=== PATIENT | male | born 1980 | race Two or more races ===

== ENCOUNTER 2017-07-26 10:17 | Emergency (ER) | payer BC ==
[2017-07-26] MEDS ORDERED: predniSONE 20 MG Tab PO ONE (10:38)
[2017-07-26] MEDS ORDERED: Ketorolac 60 MG/2 ML SDV IM ONE (10:39)
--- NOTE | 2017-07-26 10:44 | EDM.PDOC ---
ED HPI GENERAL MEDICAL PROBLEM - General Chief Complaint: Upper Extremity Injury/Pain Stated Complaint: PAIN IN HANDS Time Seen by Provider: 07/26/17 10:29 - History of Present Illness INITIAL COMMENTS - FREE TEXT/NARRATIVE: HISTORY AND PHYSICAL: History of present illness: The patient is a 36-year-old male who presents with complaints of bilateral wrist pain and tingling to digits one through 3 bilaterally but more on the right that he has had in the past and was told that he had carpal tunnel; he says that it had gone away and now with his new job and repetitive movements it is coming back. Patient denies any systemic complaints of fever chills chest pain shortness of breath and has no recent injuries to the extremities or the neck. He says that he feels like there is tension in his volar wrist and he cannot move his wrist normally without discomfort and feeling like he is stretching things. He intermittently will get numbness or tingling in digits one through 3 bilaterally. He also complains of some proximal elbow pain bilaterally without any injuries soft tissue swelling or bony changes. Patient was managed symptomatically when he was in [place] and evaluated and told he had carpal tunnel and as it got better he did not follow-up. He says that with his new job he is doing these movements with his hands and wrists and it has been aggravated. Review of systems: As per history of present illness and below otherwise all systems reviewed and negative. Past medical history: As per history of present illness and as reviewed below otherwise noncontributory. Surgical history: As per history of present illness and as reviewed below otherwise noncontributory. Social history: No reported history of drug or alcohol abuse. Family history: As per history of present illness and as reviewed below otherwise noncontributory. Physical exam: Gen.: Well-developed well-nourished man who is nontoxic and vital signs reviewed by me. HEENT: Atraumatic, normocephalic, negative for conjunctival pallor or scleral icterus, mucous membranes moist, throat clear, neck supple, nontender, trachea midline. Lungs: Clear to auscultation, breath sounds equal bilaterally, chest nontender. Heart: S1S2, regular rate and rhythm no murmur Abdomen: Soft, nondistended, nontender. NABS Skin: No evidence of any diaphoresis, normal turgor no evidence of any rashes or lesions Genitourinary: Deferred. Rectal: Deferred. Extremities: Atraumatic, negative for cords or calf pain. Neurovascular unremarkable. Patient has full range of motion of all extremities but he does have discomfort when he tries to fully flex and extend his wrist. When the patient is put into the parenchyma position he has about 120 angle on the right side and about 100 angle on the left side and says that is very discomforting and he feels tingling in his fingers. There is no ecchymosis or palpable deformities on the wrists and there is no tenderness soft tissue swelling joint effusions at the elbow. All compartments are soft and intact. Neurovascular is completely intact Neuro: Awake, alert, oriented. Cranial nerves II through XII unremarkable. Cerebellum unremarkable. Motor and sensory unremarkable throughout. Exam nonfocal. Diagnostics: [] Therapeutics: Bilateral Velcro splints, Toradol, prednisone I discussed with the patient that he would likely need to be followed up by our hand specialists and that we would give him a short burst of steroids and anti- inflammatories. Impression: Bilateral wrist pain with history of carpal tunnel rule out exacerbation Definitive disposition and diagnosis as appropriate pending reevaluation and review of above. Bilateral Wrist Pain Score (Numeric/FACES): 9 - Related Data Allergies Allergy/AdvReac Type Severity Reaction Status Date / Time No Known Allergies Allergy Verified 07/26/17 10:29 Home Meds: Home Meds . [No Known Home Meds] 07/26/17 [History] Review of Systems - Review of Systems Review Of Systems: ROS reveals no pertinent complaints other than HPI. ED EXAM, GENERAL - Physical Exam Exam: See Below (See dictation) Course - Vital Signs Last Recorded V/S: Last Vital Signs Temp 36.3 C 07/26/17 10:31 Pulse 58 L 07/26/17 10:31 Resp 16 07/26/17 10:31 BP 146/86 H 07/26/17 10:31 Pulse Ox 98 07/26/17 10:31 - Orders/Labs/Meds Orders: Active Orders 24 hr Category Date Time Status Ketorolac [Toradol] Med 07/26/17 10:39 Once 60 mg IM ONETIME ONE predniSONE Med 07/26/17 10:38 Once 40 mg PO ONETIME ONE DME for Discharge [COMM] Stat Oth 07/26/17 10:38 Ordered Departure - Departure Time of Disposition: 10:43 Disposition: Home, Self-Care 01 Condition: Good Clinical Impression: Bilateral wrist pain Carpal tunnel syndrome Qualifiers: Laterality: bilateral Qualified Code(s): G56.03 - Carpal tunnel syndrome, bilateral upper limbs - Discharge Information Referrals: PCP,None [Primary Care Provider] - Additional Instructions: The following information is given to patients seen in the emergency department who are being discharged to home. This information is to outline your options for follow-up care. We provide all patients seen in our emergency department with a follow-up referral. The need for follow-up, as well as the timing and circumstances, are variable depending upon the specifics of your emergency department visit. If you don't have a primary care physician on staff, we will provide you with a referral. We always advise you to contact your personal physician following an emergency department visit to inform them of the circumstance of the visit and for follow-up with them and/or the need for any referrals to a consulting specialist. The emergency department will also refer you to a specialist when appropriate. This referral assures that you have the opportunity for followup care with a specialist. All of these measure are taken in an effort to provide you with optimal care, which includes your followup. Under all circumstances we always encourage you to contact your private physician who remains a resource for coordinating your care. When calling for followup care, please make the office aware that this follow-up is from your recent emergency room visit. If for any reason you are refused follow-up, please contact the [facility] emergency department at and ask to speak to the emergency department charge nurse. [facility] Specialty clinic-Plastic Surgery and Hand Surgery Professional Building [address] [place] [address] [address] [place] [address] [facility] Primary care- Internal Medicine and Family [facility] [address] [place] [id number] Please wear the splints you have been given at all times possible that especially when her work. Please take prescriptions as indicated and ice areas after activities and working. Please contact and follow-up with primary care as well as our hand specialists for further evaluation of this problem and return to ER as needed and as discussed - My Orders Last 24 Hours: My Active Orders 07/26/17 10:38 predniSONE 40 mg PO ONETIME ONE DME for Discharge [COMM] Stat 07/26/17 10:39 Ketorolac [Toradol] 60 mg IM ONETIME ONE - Assessment/Plan Last 24 Hours: My Active Orders 07/26/17 10:38 predniSONE 40 mg PO ONETIME ONE DME for Discharge [COMM] Stat 07/26/17 10:39 Ketorolac [Toradol] 60 mg IM ONETIME ONE
[2017-07-26 11:50] VITALS: BP 139/80
== END 2017-07-26 11:40 | disposition home or self-care (01) ==
LOC: MW.ED 10:17
DX: G56.03 Carpal tunnel syndrome, bilateral upper limbs (principal)
CPT/HCPCS: 96372; 99282; A9270; J1885; L3807

== ENCOUNTER 2017-08-10 11:23 | Emergency (ER) | payer BC ==
[2017-08-10 11:34] VITALS: BP 141/86
--- NOTE | 2017-08-10 11:42 | EDM.PDOC ---
ED HPI GENERAL MEDICAL PROBLEM - General Stated Complaint: CARPAL TUNNEL Time Seen by Provider: 08/10/17 11:39 Source of Information: Reports: Patient History Limitations: Reports: No Limitations - History of Present Illness INITIAL COMMENTS - FREE TEXT/NARRATIVE: HISTORY AND PHYSICAL: []36-year-old male presenting with carpal tunnel pain History of Present Illness: [] Patient has to wrist braces on that he wears all the time except when he is at work. He has an appointment with Dr. Escalante on September 01. He is having difficulty grasping any objects. Review of Systems: As per history of present illness and below otherwise all systems reviewed and negative. Past medical history: As per history of present illness and as reviewed below otherwise noncontributory. Surgical history: As per history of present illness and as reviewed below otherwise noncontributory. Social history: No reported history of drug or alcohol abuse. Family history: As per history of present illness and as reviewed below otherwise noncontributory. Physical exam: Alert and oriented male answering questions appropriately in full sentences without any shortness of breath he is nontoxic in appearance HEENT: Atraumatic, normocehpalic, pupils reactive, negative for conjunctival pallor or scleral icterus, mucous membranes moist, throat clear, neck supple, nontender, trachea midline. Lungs: Clear to auscultation, breath sounds equal bilaterally, chest non tender. Heart: S1S2, regular, negative for clicks, rubs, or JVD. Abdomen: Soft, nondistended, nontender. Negative for masses or hepatossplenmegaly. Negative for costovertebral tenderness. Pelvis: Stable nontender. Genitourinary: Deferred. Rectal: Deferred Extremities: Atraumatic, negative for cords or calf pain. Patient has bilateral thumb spica splints on. Refill less than 2 second. Neurovascular unremarkable. Neuro: Awake, alert, oriented. Cranial nerves II through XII unremarkable. Cerebellum unremarkable. Motor and sensory unremarkable throughout. Exam nonfocal. Diagnostics: [] Therapeutics: [] Impression: [Carpal tunnel pain bilaterally] Plan: []Discharged to home Trial with some Neurontin 300 mg 3 times a day when necessary Keep appointment as scheduled Definitive disposition and diagnosis as appropriate pending reevaluation and review of above. 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 Neurological History: Reports: None Psychiatric History: Reports: None Endocrine/Metabolic History: Reports: None Hematologic History: Reports: None Immunologic History: Reports: None Oncologic (Cancer) History: Reports: None Dermatologic History: Reports: None - Past Surgical History Head Surgeries/Procedures: Reports: None HEENT Surgical History: Reports: None Cardiovascular Surgical History: Reports: None Respiratory Surgical History: Reports: None GI Surgical History: Reports: None Male Surgical History: Reports: None Endocrine Surgical History: Reports: None Neurological Surgical History: Reports: None Musculoskeletal Surgical History: Reports: Carpal Tunnel Oncologic Surgical History: Reports: None Social & Family History - Family History Family Medical History: Noncontributory - Tobacco Use Smoking Status *Q: Current Every Day Smoker Years of Tobacco use: 2 Packs/Tins Daily: 1.5 Used Tobacco, but Quit: No Second Hand Smoke Exposure: Yes - Caffeine Use Caffeine Use: Reports: None Caffeine Use Comment: 1 cup per day - Recreational Drug Use Recreational Drug Use: No ED ROS GENERAL - Review of Systems Review Of Systems: ROS reveals no pertinent complaints other than HPI. ED EXAM, NEURO - Physical Exam Exam: See Below Course - Vital Signs Last Recorded V/S: Last Vital Signs Temp 36.7 C 08/10/17 11:31 Pulse 53 L 08/10/17 11:31 Resp 18 08/10/17 11:31 BP 141/86 H 08/10/17 11:31 Pulse Ox 98 08/10/17 11:31 Departure - Departure Time of Disposition: 11:47 Disposition: Home, Self-Care 01 Condition: Good Clinical Impression: Carpal tunnel syndrome on both sides - Discharge Information Prescriptions: Gabapentin [Neurontin] 300 mg PO TID PRN #30 cap PRN Reason: Pain Referrals: PCP,None [Primary Care Provider] - Additional Instructions: The following information is given to patients seen in the emergency department who are being discharged to home. This information is to outline your options for follow-up care. We provide all patients seen in our emergency department with a follow-up referral. The need for follow-up, as well as the timing and circumstances, are variable depending upon the specifics of your emergency department visit. If you don't have a primary care physician on staff, we will provide you with a referral. We always advise you to contact your personal physician following an emergency department visit to inform them of the circumstance of the visit and for follow-up with them and/or the need for any referrals to a consulting specialist. The emergency department will also refer you to a specialist when appropriate. This referral assures that you have the opportunity for followup care with a specialist. All of these measure are taken in an effort to provide you with optimal care, which includes your followup. Under all circumstances we always encourage you to contact your private physician who remains a resource for coordinating your care. When calling for followup care, please make the office aware that this follow-up is from your recent emergency room visit. If for any reason you are refused follow-up, please contact the [facility] emergency department at and asked to speak to the emergency department charge nurse. [facility]
== END 2017-08-10 12:04 | disposition home or self-care (01) ==
LOC: MW.ED 11:23
DX: G56.03 Carpal tunnel syndrome, bilateral upper limbs (principal); F17.210 Nicotine dependence, cigarettes, uncomplicated; Z79.899 Other long term (current) drug therapy
CPT/HCPCS: 99282; 99283

== ENCOUNTER 2017-08-21 16:45 | Emergency (ER) | payer BC ==
--- NOTE | 2017-08-21 17:22 | EDM.PDOC ---
ED HPI GENERAL MEDICAL PROBLEM - General Chief Complaint: Lower Extremity Injury/Pain Stated Complaint: PT HURT LT KNEE Time Seen by Provider: 08/21/17 16:54 Source of Information: Reports: Patient History Limitations: Reports: No Limitations - History of Present Illness INITIAL COMMENTS - FREE TEXT/NARRATIVE: HISTORY AND PHYSICAL: History of present illness: Patient is a 36-year-old male with a four-day history of left knee pain. States he started noticing swelling above and below the patella along with pain with weightbearing and at rest. He has tried a [id number] knee sleeve for compression which has provided minimal to no relief. Denies any previous injury to the affected extremity. Patient does state he is on his feet a lot for work and therefore does not have much time to rest and elevate his lower extremities. Patient is able to flex and extend at the knee and ankle. No foot drop noted. Denies any numbness or tingling to the extremity. Review of systems: As per history of present illness and below otherwise all systems reviewed and negative. Past medical history: As per history of present illness and as reviewed below otherwise noncontributory. Surgical history: As per history of present illness and as reviewed below otherwise noncontributory. Social history: No reported history of drug or alcohol abuse. Family history: As per history of present illness and as reviewed below otherwise noncontributory. Physical exam: HEENT: Atraumatic, normocephalic, pupils reactive, negative for conjunctival pallor or scleral icterus, mucous membranes moist, throat clear, neck supple, nontender, trachea midline. Lungs: Clear to auscultation, breath sounds equal bilaterally, chest nontender. Heart: S1S2, regular rate and rhythm Abdomen: Soft, nondistended, nontender. Negative for masses or hepatosplenomegaly. Negative for costovertebral tenderness. Pelvis: Stable nontender. Genitourinary: Deferred. Rectal: Deferred. Extremities: Atraumatic, negative for cords or calf pain. Patient has tenderness to the distal left quadricep muscle with mild swelling of the patella. Fullness is appreciated to the posterior knee, along with tenderness. Strong pedal pulses bilaterally. Denies any numbness or tingling. Neurovascular unremarkable. Neuro: Awake, alert, oriented. Cranial nerves II through XII unremarkable. Cerebellum unremarkable. Motor and sensory unremarkable throughout. Exam nonfocal. Both the x-ray and ultrasound show a effusion of the left knee. There is no DVT or Kim cyst noted. Patient states he is concerned that he might have some "ligament tear". I instructed him to follow-up with the orthopedic provider for further diagnostics. At this time I will put a knee immobilizer on him and give him crutches. Please use the anti-inflammatory for daytime use. Do not take additional NSAIDs such as Aleve or ibuprofen with this medication. Tramadol has been given to you for nighttime use. Do not take this while needing to be functioning or driving. Patient is agreeable to plan of care and denies any further questions at this time. Diagnostics: X-ray, ultrasound Therapeutics: Toradol Impression: Left knee effusion Plan: 1. Please use the shari wrap and crutches as directed. Rest, ice, compression, and elevation 2-3 times throughout the day. Please use the anti-inflammatory for daytime use. Do not take additional NSAIDs such as Aleve or ibuprofen with this medication. Tramadol has been given to you for nighttime use. Do not take this while needing to be functioning or driving. 2. Please follow-up with the orthopedic provider as we discussed. 3. Please return to the ED as needed as discussed Definitive disposition and diagnosis as appropriate pending reevaluation and review of above. Duration: Day(s): (4) Location: Reports: Lower Extremity, Left left knee Pain Score (Numeric/FACES): 8 - Related Data Allergies Allergy/AdvReac Type Severity Reaction Status Date / Time No Known Allergies Allergy Verified 08/21/17 16:57 Home Meds: Home Meds Aspirin 0 tab PO BID 08/21/17 [History] Past Medical History - Past Health History Medical/Surgical History: Denies Medical/Surgical History HEENT History: Reports: None Cardiovascular History: Reports: None Respiratory History: Reports: None Gastrointestinal History: Reports: None Genitourinary History: Reports: None Musculoskeletal History: Reports: RA, Other (See Below) 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 Neurological History: Reports: None Psychiatric History: Reports: None Endocrine/Metabolic History: Reports: None Hematologic History: Reports: None Immunologic History: Reports: None Oncologic (Cancer) History: Reports: None Dermatologic History: Reports: None - Past Surgical History Head Surgeries/Procedures: Reports: None HEENT Surgical History: Reports: None Cardiovascular Surgical History: Reports: None Respiratory Surgical History: Reports: None GI Surgical History: Reports: None Male Surgical History: Reports: None Endocrine Surgical History: Reports: None Neurological Surgical History: Reports: None Musculoskeletal Surgical History: Reports: Carpal Tunnel Oncologic Surgical History: Reports: None Social & Family History - Family History Family Medical History: Noncontributory - Tobacco Use Smoking Status *Q: Current Every Day Smoker Years of Tobacco use: 3 Packs/Tins Daily: 1 Used Tobacco, but Quit: No Second Hand Smoke Exposure: Yes - Caffeine Use Caffeine Use: Reports: None Caffeine Use Comment: 1 cup per day - Recreational Drug Use Recreational Drug Use: No Review of Systems - Review of Systems Review Of Systems: ROS reveals no pertinent complaints other than HPI. ED EXAM, GENERAL - Physical Exam Exam: See Below (See dictation) Course - Vital Signs Last Recorded V/S: Last Vital Signs Temp 37.1 C 08/21/17 16:45 Pulse 66 08/21/17 16:45 Resp 18 08/21/17 16:45 BP 136/73 08/21/17 16:45 Pulse Ox 97 08/21/17 16:45 - Orders/Labs/Meds Orders: Active Orders 24 hr Category Date Time Status Knee 3V Lt [CR] Stat Exams 08/21/17 16:59 Taken Venous Doppler Lwr Ext Lt [US] Stat Exams 08/21/17 17:23 Ordered DME for Discharge [COMM] Stat Oth 08/21/17 19:28 Ordered Meds: Medications Discontinued Medications Generic Name Dose Route Start Last Admin Trade Name Freq PRN Reason Stop Dose Admin Ketorolac Tromethamine 60 mg 08/21/17 17:23 08/21/17 17:36 Toradol IM 08/21/17 17:24 60 mg ONETIME ONE Administration Departure - Departure Time of Disposition: 19:26 Disposition: Home, Self-Care 01 Clinical Impression: Knee effusion, left - Discharge Information Referrals: PCP,None [Primary Care Provider] - Forms: ED Department Discharge Additional Instructions: My general discharge The following information is given to patients seen in the emergency department who are being discharged to home. This information is to outline your options for follow-up care. We provide all patients seen in our emergency department with a follow-up referral. The need for follow-up, as well as the timing and circumstances, are variable depending upon the specifics of your emergency department visit. If you don't have a primary care physician on staff, we will provide you with a referral. We always advise you to contact your personal physician following an emergency department visit to inform them of the circumstance of the visit and for follow-up with them and/or the need for any referrals to a consulting specialist. The emergency department will also refer you to a specialist when appropriate. This referral assures that you have the opportunity for follow-up care with a specialist. All of these measure are taken in an effort to provide you with optimal care, which includes your follow-up. Under all circumstances we always encourage you to contact your private physician who remains a resource for coordinating your care. When calling for follow-up care, please make the office aware that this follow-up is from your recent emergency room visit. If for any reason you are refused follow-up, please contact the [facility] Emergency Department at and asked to speak to the emergency department charge nurse. [facility] Specialty Care - Orthopedic Clinic Professional [address], [address] [place] [address] 1. Please use the shari wrap and crutches as directed. Rest, ice, compression, and elevation 2-3 times throughout the day. Please use the anti-inflammatory for daytime use. Do not take additional NSAIDs such as Aleve or ibuprofen with this medication. Tramadol has been given to you for nighttime use. Do not take this while needing to be functioning or driving. 2. Please follow-up with the orthopedic provider as we discussed. 3. Please return to the ED as needed as discussed - My Orders Last 24 Hours: My Active Orders 08/21/17 16:59 Knee 3V Lt [CR] Stat 08/21/17 17:23 Venous Doppler Lwr Ext Lt [US] Stat 08/21/17 19:28 DME for Discharge [COMM] Stat - Assessment/Plan Last 24 Hours: My Active Orders 08/21/17 16:59 Knee 3V Lt [CR] Stat 08/21/17 17:23 Venous Doppler Lwr Ext Lt [US] Stat 08/21/17 19:28 DME for Discharge [COMM] Stat
[2017-08-21] MEDS ORDERED: Ketorolac 60 MG/2 ML SDV IM ONE (17:23)
[2017-08-21 19:53] VITALS: BP 137/77
--- NOTE | 2017-08-22 12:26 | CR ---
EXAM DATE: 08/21/17 PATIENT'S AGE: 36 Patient: INGRID MORALES Facility: [place], [place] Site . Site : [id number] Study: XRay Knee [id number] 5:36:34 PM Ordering Physician: Doctor Camarillo Final Report: INDICATION: Knee pain and Swelling for 3 days, no injury TECHNIQUE: Knee radiograph 3 views. COMPARISON: None FINDINGS: Bones: Alignment is normal. No acute fractures or aggressive bone lesions identified. Joint spaces: Unremarkable. Small knee effusion is seen on the lateral exam. Soft tissues: Unremarkable. No radiopaque foreign bodies are seen. IMPRESSION: 1. No acute osseous injuries are noted. 2. Small knee effusion is seen on the lateral exam. Dictated by: Jean-Paul Garcia MD @ 08/21/2017 17:52:19 (Electronic Signature) Report Signed by Proxy. TAJ
--- NOTE | 2017-08-22 12:38 | US ---
EXAM DATE: 08/21/17 PATIENT'S AGE: 36 Patient: INGRID MORALES Facility: [place], [place] Site . Site : 1980 Study: US Knee Left [id number]/5/2017 7:30:44 PM Ordering Physician: Doctor Camarillo Final Report: INDICATION: Left knee pain. Evaluate possible Kim`s cyst. FINDINGS/IMPRESSION: Sonographic scanning over the left popliteal fossa shows no evidence of a left- sided popliteal cyst. The left popliteal vein is normally compressible with no evidence of DVT. Scanning over the anterior aspect of the left knee above the patella shows a 3.9 x 3.7 x 1.1 centimeter fluid collection which likely represents a left knee joint effusion within the suprapatellar bursa. Dictated by Dav Chowdhury MD @ 08/21/2017 7:59:33 PM Dictated by: Dav Chowdhury MD @ 08/21/2017 20:01:24 (Electronic Signature) Report Signed by Proxy. MTDDori
== END 2017-08-21 19:47 | disposition home or self-care (01) ==
LOC: MW.ED 16:45
DX: M25.462 Effusion, left knee (principal); F17.210 Nicotine dependence, cigarettes, uncomplicated
CPT/HCPCS: 73562; 93971; 96372; 99284; J1885; 99283

== ENCOUNTER 2017-11-21 14:45 | Emergency (ER) | payer BC ==
[2017-11-21 15:14] VITALS: BP 130/78
[2017-11-21] MEDS ORDERED: Albuterol/Ipratropium 3.0-0.5 MG/3 ML Neb Soln NEB ONE (15:14)
[2017-11-21] MEDS ORDERED: Ondansetron 4 MG Tab.DIS PO ONE (15:34)
[2017-11-21] MEDS ORDERED: Ondansetron 4 MG Tab.DIS ONE (15:34)
--- NOTE | 2017-11-21 16:30 | EDM.PDOC ---
ED HPI GENERAL MEDICAL PROBLEM - General Chief Complaint: Respiratory Problem Stated Complaint: COUGHING Time Seen by Provider: 11/21/17 15:00 Source of Information: Reports: Patient History Limitations: Reports: No Limitations - History of Present Illness INITIAL COMMENTS - FREE TEXT/NARRATIVE: History of present illness: [37-year-old male presenting with complaints of coughing, nausea, weakness. Patient indicates that he feels chest congestion, cough with significant amount of mucus production bodyaches and pains, as well as intermittent low-grade fever ] Review of systems: As per history of present illness and below otherwise all systems reviewed and negative. Past medical history: As per history of present illness and as reviewed below otherwise noncontributory. Surgical history: As per history of present illness and as reviewed below otherwise noncontributory. Social history: No reported history of drug or alcohol abuse. Family history: As per history of present illness and as reviewed below otherwise noncontributory. Physical exam: HEENT: Atraumatic, normocephalic, pupils reactive, negative for conjunctival pallor or scleral icterus, mucous membranes moist, throat clear, neck supple, nontender, trachea midline. Lungs: Slightly dim with coarse wet cough breath sounds equal bilaterally, chest nontender. Heart: S1S2, regular, negative for clicks, rubs, or JVD. Abdomen: Soft, nondistended, nontender. Negative for masses or hepatosplenomegaly. Negative for costovertebral tenderness. Pelvis: Stable nontender. Genitourinary: Deferred. Rectal: Deferred. Extremities: Atraumatic, negative for cords or calf pain. Neurovascular unremarkable. Neuro: Awake, alert, oriented. Cranial nerves II through XII unremarkable. Cerebellum unremarkable. Motor and sensory unremarkable throughout. Exam nonfocal. Patient had good response to respiratory therapy treatment with strong productive cough. Influenza were both negative. Discussed viral infections with patient and cough as well as nausea patient verbalized understanding we'll give few days off work rest and hydration Diagnostics: [Fluids AB, chest x-ray] Therapeutics: [] Impression: [Cough Viral syndrome] Plan: [Zofran, hydration, albuterol, spacer, steroids] Definitive disposition and diagnosis as appropriate pending reevaluation and review of above. Body Aches Pain Score (Numeric/FACES): 7 - Related Data Allergies Allergy/AdvReac Type Severity Reaction Status Date / Time No Known Allergies Allergy Verified 11/21/17 15:08 Home Meds: Home Meds Albuterol Sulfate [Proair Hfa] 2 puff IH Q6HR #1 hfa.aer.ad 11/21/17 [Rx] Inhaler, Assist Devices [Space Chamber Plus] 1 each ASDIRECTED #1 spacer 04/03 [Rx] Ondansetron [Zofran] 4 mg PO Q4H #30 tab 11/21/17 [Rx] methylPREDNISolone [Medrol] 4 mg PO DAILY #21 tab.ds.pk 11/21/17 [Rx] Past Medical History - Past Health History Medical/Surgical History: Denies Medical/Surgical History HEENT History: Reports: None Cardiovascular History: Reports: None Respiratory History: Reports: None Gastrointestinal History: Reports: None Genitourinary History: Reports: None Musculoskeletal History: Reports: RA, Other (See Below) 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 Neurological History: Reports: None Psychiatric History: Reports: None Endocrine/Metabolic History: Reports: None Hematologic History: Reports: None Immunologic History: Reports: None Oncologic (Cancer) History: Reports: None Dermatologic History: Reports: None - Past Surgical History Head Surgeries/Procedures: Reports: None HEENT Surgical History: Reports: None Cardiovascular Surgical History: Reports: None Respiratory Surgical History: Reports: None GI Surgical History: Reports: None Male Surgical History: Reports: None Endocrine Surgical History: Reports: None Neurological Surgical History: Reports: None Musculoskeletal Surgical History: Reports: Carpal Tunnel Oncologic Surgical History: Reports: None Social & Family History - Family History Family Medical History: Noncontributory - Tobacco Use Smoking Status *Q: Never Smoker Years of Tobacco use: 3 Packs/Tins Daily: 1 Used Tobacco, but Quit: No Second Hand Smoke Exposure: Yes - Caffeine Use Caffeine Use: Reports: None Caffeine Use Comment: 1 cup per day - Recreational Drug Use Recreational Drug Use: No ED ROS GENERAL - Review of Systems Review Of Systems: See Below (History of present illness) ED EXAM, GENERAL - Physical Exam Exam: See Below Course - Vital Signs Last Recorded V/S: Last Vital Signs Temp 37.6 C 11/21/17 15:09 Pulse 81 11/21/17 15:09 Resp 20 11/21/17 15:09 BP 130/78 11/21/17 15:09 Pulse Ox 97 11/21/17 15:09 - Orders/Labs/Meds Orders: Active Orders 24 hr Category Date Time Status RT Aerosol Therapy [RC] ASDIRECTED Care 11/21/17 15:14 Active Chest 2V [CR] Stat Exams 11/21/17 15:14 Taken Meds: Medications Discontinued Medications Generic Name Dose Route Start Last Admin Trade Name Elo PRN Reason Stop Dose Admin Albuterol/Ipratropium 3 ml 11/21/17 15:14 11/21/17 15:21 Duoneb 3.0-0.5 Mg/3 Ml NEB 11/21/17 15:15 3 ml ONETIME ONE Administration Ondansetron HCl 4 mg 11/21/17 15:34 11/21/17 15:36 Zofran Odt PO 11/21/17 15:35 4 mg ONETIME ONE Administration Ondansetron HCl Confirm 11/21/17 15:34 Zofran Odt Administered 11/21/17 15:35 Dose 4 mg .ROUTE .STK-MED ONE Departure - Departure Time of Disposition: 16:48 Disposition: Home, Self-Care 01 Condition: Good Clinical Impression: Viral syndrome, Cough - Discharge Information Prescriptions: Albuterol Sulfate [Proair Hfa] 2 puff IH Q6HR #1 hfa.aer.ad Inhaler, Assist Devices [Space Chamber Plus] 1 each MC ASDIRECTED #1 spacer methylPREDNISolone [Medrol] 4 mg PO DAILY #21 tab.ds.pk Ondansetron [Zofran] 4 mg PO Q4H #30 tab Referrals: PCP,None [Primary Care Provider] - Forms: ED Department Discharge Additional Instructions: The following information is given to patients seen in the emergency department who are being discharged to home. This information is to outline your options for follow-up care. We provide all patients seen in our emergency department with a follow-up referral. The need for follow-up, as well as the timing and circumstances, are variable depending upon the specifics of your emergency department visit. If you don't have a primary care physician on staff, we will provide you with a referral. We always advise you to contact your personal physician following an emergency department visit to inform them of the circumstance of the visit and for follow-up with them and/or the need for any referrals to a consulting specialist. The emergency department will also refer you to a specialist when appropriate. This referral assures that you have the opportunity for follow-up care with a specialist. All of these measure are taken in an effort to provide you with optimal care, which includes your follow-up. Under all circumstances we always encourage you to contact your private physician who remains a resource for coordinating your care. When calling for follow-up care, please make the office aware that this follow-up is from your recent emergency room visit. If for any reason you are refused follow-up, please contact the [facility] Emergency Department at and asked to speak to the emergency department charge nurse. Take medication as directed Hydration and rest are haynes to helping resolve this quickly Follow-up with primary care provider in 3-5 days Return to ED as needed as discussed - My Orders Last 24 Hours: My Active Orders 11/21/17 15:14 RT Aerosol Therapy [RC] ASDIRECTED Chest 2V [CR] Stat - Assessment/Plan Last 24 Hours: My Active Orders 11/21/17 15:14 RT Aerosol Therapy [RC] ASDIRECTED Chest 2V [CR] Stat
--- NOTE | 2017-11-24 09:12 | CR ---
EXAM DATE: 11/21/17 PATIENT'S AGE: 37 Patient: INGRID MORALES Facility: [place], [place] Site . Site : 1980 Study: XRay Chest [id number]/5/2018 4:23:24 PM Ordering Physician: Doctor Camarillo Final Report: HISTORY: Cough for 3 days, vomiting and diarrhea x2 days. FINDINGS: PA and lateral chest radiographs demonstrate normal cardiac silhouette. Pulmonary vasculature and river are normal. No consolidation or pleural effusion is seen. Bony structures are normal for age. There is no free air under the diaphragm. IMPRESSION: No acute cardiopulmonary disease. Dictated by Kim Pacheco MD @ 11/21/2017 4:34:53 PM Dictated by: Kim Pacheco MD @ 11/21/2017 16:35:10 (Electronic Signature) Report Signed by Proxy. TAJ
== END 2017-11-21 16:53 | disposition home or self-care (01) ==
LOC: MW.ED 14:45
DX: B34.9 Viral infection, unspecified (principal); Z77.22 Contact with and (suspected) exposure to environmental tobacco smoke (acute) (chronic); Z79.899 Other long term (current) drug therapy
CPT/HCPCS: 71046; 87804; 94640; 99284; A9270; 99283

== ENCOUNTER 2018-03-08 13:23 | Emergency (ER) | payer BC ==
--- NOTE | 2018-03-08 13:44 | EDM.PDOC ---
ED HPI GENERAL MEDICAL PROBLEM - General Chief Complaint: Upper Extremity Injury/Pain Stated Complaint: RT HAND SWOLLEN Time Seen by Provider: 03/08/18 13:31 - History of Present Illness INITIAL COMMENTS - FREE TEXT/NARRATIVE: HISTORY AND PHYSICAL: History of present illness: The patient is a 37-year-old male who has bilateral carpal tunnel and is scheduled for surgery with Dr. Escalante on Friday on the right wrist and presents with complaints of knuckle pain/MCP discomfort at MCP 2,3,4 and 5 of his right hand. The patient says that he has an arthritic knee and was told it might be RA was never been formally diagnosed and he does get intermittent knuckle and joint pain in his hands bilaterally on-and-off over many years due to the type of work that he does. The patient denies any new trauma to the area and has not noticed any swelling and has no neurosensory changes in his hand. He has not noticed any warmth to the area and says it is more painful when he tries to make a fist which he has to do a lot at work. He is here for evaluation and has been taking [id number] Motrin. He has no numbness or weakness to his hand Review of systems: As per history of present illness and below otherwise all systems reviewed and negative. Past medical history: As per history of present illness and as reviewed below otherwise noncontributory. Surgical history: As per history of present illness and as reviewed below otherwise noncontributory. Social history: No reported history of drug or alcohol abuse. Family history: As per history of present illness and as reviewed below otherwise noncontributory. Physical exam: HEENT: Atraumatic, normocephalic, negative for conjunctival pallor or scleral icterus, mucous membranes moist, throat clear, neck supple, nontender, trachea midline. Lungs: Clear to auscultation, breath sounds equal bilaterally, Heart: S1S2, regular rate and rhythm no overt murmurs Abdomen: Deferred Pelvis: Deferred. Genitourinary: Deferred. Rectal: Deferred. Extremities: Atraumatic, negative for cords or calf pain. Neurovascular unremarkable. At bilateral hands there is no overt swelling redness or warmth appreciated more specifically along the dorsal aspect of the right hand. There are no skin changes no lesions and no palpable bony deformities of the right hand. There is some mild tenderness when the patient makes a fist at the MCPs numbers 2, 3, 4, 5 but again there is no joint swelling warmth redness or abnormalities appreciated. Pulses are intact and there is no neurosensory changes in the hand. Neuro: Awake, alert, oriented. Cranial nerves II through XII unremarkable. Cerebellum unremarkable. Motor and sensory unremarkable throughout. Exam nonfocal. Diagnostics: X-ray right hand Therapeutics: [] Dr. Escalante was made aware of this case and feels that steroids will not affect her surgery this week so I will prescribe him a Medrol Dosepak and diclofenac. The patient says he needs to continue working this week so I'll not prescribe him anything that is stronger than the NSAIDs. I advised him that if the pain persists he needs to contact Dr. Escalante or return here Impression: MCP pain, history of inflammatory arthritis and carpal tunnel Definitive disposition and diagnosis as appropriate pending reevaluation and review of above. right hand Pain Score (Numeric/FACES): 5 - Related Data Allergies Allergy/AdvReac Type Severity Reaction Status Date / Time No Known Allergies Allergy Verified 03/08/18 13:28 Home Meds: Home Meds . 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 Neurological History: Reports: None Psychiatric History: Reports: None Endocrine/Metabolic History: Reports: None Hematologic History: Reports: None Immunologic History: Reports: None Oncologic (Cancer) History: Reports: None Dermatologic History: Reports: None - Infectious Disease History Infectious Disease History: Reports: Chicken Pox - Past Surgical History Head Surgeries/Procedures: Reports: None HEENT Surgical History: Reports: None Cardiovascular Surgical History: Reports: None Respiratory Surgical History: Reports: None GI Surgical History: Reports: None Male Surgical History: Reports: None Endocrine Surgical History: Reports: None Neurological Surgical History: Reports: None Musculoskeletal Surgical History: Reports: Carpal Tunnel Oncologic Surgical History: Reports: None Social & Family History - Family History Family Medical History: Noncontributory - Tobacco Use Smoking Status *Q: Current Every Day Smoker Years of Tobacco use: 13 Packs/Tins Daily: 1 Used Tobacco, but Quit: No Second Hand Smoke Exposure: Yes - Caffeine Use Caffeine Use: Reports: None Caffeine Use Comment: 1 cup per day - Recreational Drug Use Recreational Drug Use: No Review of Systems - Review of Systems Review Of Systems: ROS reveals no pertinent complaints other than HPI. ED EXAM, GENERAL - Physical Exam Exam: See Below (See dictation) Course - Vital Signs Last Recorded V/S: Last Vital Signs Temp 36.9 C 03/08/18 13:29 Pulse 56 L 03/08/18 13:29 Resp 18 03/08/18 13:29 BP 109/61 03/08/18 13:29 Pulse Ox 98 03/08/18 13:29 - Orders/Labs/Meds Orders: Active Orders 24 hr Category Date Time Status Hand 2V Rt [CR] Stat Exams 03/08/18 13:38 Taken Departure - Departure Time of Disposition: 14:53 Disposition: Home, Self-Care 01 Condition: Good Clinical Impression: Pain, joint, hand, right - Discharge Information Referrals: PCP,None [Primary Care Provider] - Forms: ED Department Discharge Additional Instructions: The following information is given to patients seen in the emergency department who are being discharged to home. This information is to outline your options for follow-up care. We provide all patients seen in our emergency department with a follow-up referral. The need for follow-up, as well as the timing and circumstances, are variable depending upon the specifics of your emergency department visit. If you don't have a primary care physician on staff, we will provide you with a referral. We always advise you to contact your personal physician following an emergency department visit to inform them of the circumstance of the visit and for follow-up with them and/or the need for any referrals to a consulting specialist. The emergency department will also refer you to a specialist when appropriate. This referral assures that you have the opportunity for followup care with a specialist. All of these measure are taken in an effort to provide you with optimal care, which includes your followup. Under all circumstances we always encourage you to contact your private physician who remains a resource for coordinating your care. When calling for followup care, please make the office aware that this follow-up is from your recent emergency room visit. If for any reason you are refused follow-up, please contact the [facility] emergency department at and ask to speak to the emergency department charge nurse. [facility] Special[facility] clinic-Plastic Surgery and Hand Surgery Professional [address] [address] Ice and elevate the hand after working Take all medications as prescribed and return to ER as needed and as discussed - My Orders Last 24 Hours: My Active Orders 03/08/18 13:38 Hand 2V Rt [CR] Stat - Assessment/Plan Last 24 Hours: My Active Orders 03/08/18 13:38 Hand 2V Rt [CR] Stat
[2018-03-08 15:10] VITALS: BP 129/67
--- NOTE | 2018-03-09 15:04 | CR ---
EXAM DATE: 03/08/18 PATIENT'S AGE: 37 Patient: INGRID MORALES Facility: [place], [place] Site . Site : 1980 Study: XRay Extremity Right hand [id number]/22/2018 1:55:21 PM Ordering Physician: Oswaldo Hayward Final Report: HISTORY: Right hand pain. Recent carpal tunnel surgery. TECHNIQUE: Two views of the right hand. COMPARISON: No prior. FINDINGS: There is no acute fracture or malalignment. Joint spaces are maintained. No erosions or chondrocalcinosis. No radiopaque foreign body or soft tissue gas. IMPRESSION: No identified cause of patient`s right hand pain. Dictated by Wes Aguiar MD @ 03/08/2018 1:57:11 PM Dictated by: Wes Aguiar MD @ 03/08/2018 13:57:16 (Electronic Signature) Report Signed by Proxy. TAJ
== END 2018-03-08 15:06 | disposition home or self-care (01) ==
LOC: MW.ED 13:23
DX: G56.03 Carpal tunnel syndrome, bilateral upper limbs (principal); F17.210 Nicotine dependence, cigarettes, uncomplicated; M06.9 Rheumatoid arthritis, unspecified
CPT/HCPCS: 73120-26-RT; 73120-RT; 99283

== ENCOUNTER 2018-03-13 06:57 | Day surgery (SDC) | payer BC ==
[2018-03-13] MEDS ORDERED: Propofol 200 MG/20 ML SDV ONE (07:05)
[2018-03-13] MEDS ORDERED: Glycopyrrolate 0.2 MG/ML SDV ONE (07:11)
[2018-03-13] MEDS ORDERED: Ondansetron 4 MG/2 ML SDV ONE (07:11)
[2018-03-13] MEDS ORDERED: Ketorolac 30 MG/ML SDV ONE (07:11)
[2018-03-13] MEDS ORDERED: Bupivacaine 25%/EPINEPHrine/PF 30 ML ONE (07:12)
[2018-03-13] MEDS ORDERED: fentaNYL 100 MCG/2 ML SDV ONE (07:13)
[2018-03-13] MEDS ORDERED: Midazolam 1 MG/ML 2 ML SDV ONE (07:13)
[2018-03-13] MEDS ORDERED: Lidocaine 2% 5 ML SDV ONE (07:25)
[2018-03-13] MEDS ORDERED: Desflurane 240 ML Bottle ONE (07:34)
[2018-03-13] MEDS ORDERED: ceFAZolin 1 GM Vial ONE (07:42)
--- NOTE | 2018-03-13 07:42 | PCM.PREANE ---
Preanesthetic Assessment - Anesthesia/Transfusion/Family Hx Anesthesia History: No Prior Anesthesia Family History of Anesthesia Reaction: No Transfusion History: No Prior Transfusion(s) - Review of Systems General: No Symptoms Pulmonary: No Symptoms Cardiovascular: No Symptoms Gastrointestinal: No Symptoms Neurological: No Symptoms Other: Reports: None - Physical Assessment O2 Sat by Pulse Oximetry: 97 Respiratory Rate: 16 Vital Signs: Last Vital Signs Temp 36.8 C 03/13/18 07:31 Pulse 57 L 03/13/18 07:31 Resp 16 03/13/18 07:31 BP 119/65 03/13/18 07:31 Pulse Ox 97 03/13/18 07:31 Height: 1.73 m Weight: 86.183 kg ASA Class: 2 Mental Status: Alert & Oriented x3 Airway Class: Mallampati = 1 Dentition: Reports: Normal Dentition ROM/Head Extension: Full Lungs: Clear to Auscultation, Normal Respiratory Effort Cardiovascular: Regular Rate, Regular Rhythm - Allergies Allergies/Adverse Reactions: Allergies Allergy/AdvReac Type Severity Reaction Status Date / Time No Known Allergies Allergy Verified 03/10/18 11:41 - Anesthesia Plan Pre-Op Medication Ordered: None - Acknowledgements Anesthesia Type Planned: General Anesthesia, MAC Pt an Appropriate Candidate for the Planned Anesthesia: Yes Alternatives and Risks of Anesthesia Discussed w Pt/Guardian: Yes Pt/Guardian Understands and Agrees with Anesthesia Plan: Yes PreAnesthesia Questionnaire - Past Health History Medical/Surgical History: Denies Medical/Surgical History HEENT History: Reports: None Cardiovascular History: Reports: Heart Murmur Respiratory History: Reports: None Gastrointestinal History: Reports: None Genitourinary History: Reports: None Musculoskeletal History: Neurological History: Reports: None Psychiatric History: Reports: None Endocrine/Metabolic History: Reports: None Hematologic History: Reports: None Immunologic History: Reports: None Oncologic (Cancer) History: Reports: None Dermatologic History: Reports: None - Infectious Disease History Infectious Disease History: Reports: Chicken Pox - Past Surgical History Head Surgeries/Procedures: Reports: None HEENT Surgical History: Reports: None Cardiovascular Surgical History: Reports: None Respiratory Surgical History: Reports: None GI Surgical History: Reports: None Male Surgical History: Reports: None Endocrine Surgical History: Reports: None Neurological Surgical History: Reports: None Musculoskeletal Surgical History: Reports: None Oncologic Surgical History: Reports: None - SUBSTANCE USE Smoking Status *Q: Current Every Day Smoker Tobacco Use Within Last Twelve Months: Cigarettes Second Hand Smoke Exposure: Yes Recreational Drug Use History: No - HOME MEDS Home Medications: Home Meds . [No Known Home Meds] 03/08/18 [History] - CURRENT (IN HOUSE) MEDS Current Meds: Current Medications Hydrocodone Bitart/Acetaminophen (Coleraine 325-5 Mg) 1 tab PO Q4H PRN PRN Reason: Pain Bupivacaine HCl/Epinephrine Bitart (Marcaine 0.25%/Epinephrine 1:200,000) 10 ml INJECT ONETIME ONE Stop: 03/13/18 08:01 Cefazolin Sodium/Dextrose 2 gm (/ Premix) 50 mls @ 100 mls/hr IV ONETIME ONE Stop: 03/13/18 08:29 Lactated Ringer's (Ringers, Lactated) 1,000 mls @ 125 mls/hr IV ASDIRECTED [facility] Last Admin: 03/13/18 07:20 Dose: 125 mls/hr Discontinued Medications Desflurane (Suprane) Confirm Administered Dose 480 ml .ROUTE .STK-MED ONE Stop: 03/13/18 07:35 Fentanyl (Sublimaze) Confirm Administered Dose 100 mcg .ROUTE .STK-MED ONE Stop: 03/13/18 07:14 Glycopyrrolate (Robinul) Confirm Administered Dose 0.2 mg .ROUTE .STK-MED ONE Stop: 03/13/18 07:12 Bupivacaine HCl/Epinephrine Bitart (Sensorc Mpf 0.25%-Epi [id number]) Confirm Administered Dose 30 mls @ as directed .ROUTE .STK-MED ONE Stop: 03/13/18 07:13 Ketorolac Tromethamine (Toradol) Confirm Administered Dose 30 mg .ROUTE .STK- MED ONE Stop: 03/13/18 07:12 Lidocaine (Xylocaine-Mpf 2%) Confirm Administered Dose 5 ml .ROUTE .STK-MED ONE Stop: 03/13/18 07:26 Midazolam HCl (Versed 1 Mg/Ml) Confirm Administered Dose 2 mg .ROUTE .STK-MED ONE Stop: 03/13/18 07:14 Ondansetron HCl (Zofran) Confirm Administered Dose 4 mg .ROUTE .STK-MED ONE Stop: 03/13/18 07:12 Propofol (Diprivan 20 Ml) Confirm Administered Dose 400 mg .ROUTE .STK-MED ONE Stop: 03/13/18 07:06
[2018-03-13] MEDS ORDERED: Sodium Chloride 0.9% 20 ML ONE (07:43)
[2018-03-13] MEDS ORDERED: Lactated Ringers 1,000 ML IV SCH (08:00)
[2018-03-13] MEDS ORDERED: ceFAZolin 2 GM in Premix Bag 1 BAG IV ONE (08:00)
[2018-03-13] MEDS ORDERED: Acetaminophen/HYDROcodone 325-5 MG Tab PO PRN (08:00)
[2018-03-13] MEDS ORDERED: Bupivacaine 0.25%/EPINEPHrine 1:200,000 10 ML SDV INJECT ONE (08:00)
[2018-03-13] MEDS ORDERED: fentaNYL 100 MCG/2 ML SDV IVPUSH PRN (09:08)
--- NOTE | 2018-03-13 09:09 | PCM.OPNOTE ---
- General Post-Op/Procedure Note Date of Surgery/Procedure: 03/13/18 Operative Procedure(s): right carpal tunnel release and excision of forehead lipoma Pre Op Diagnosis: right carpal tunnel syndrome and deep forehead lipoma Post-Op Diagnosis: Same - lipoma submuscular Anesthesia Technique: General LMA, Local Primary Surgeon: Jazmin Escalante Complications: None Condition: Good
--- NOTE | 2018-03-13 10:48 | PCM.POSTAN ---
POST ANESTHESIA ASSESSMENT - MENTAL STATUS Mental Status: Alert, Oriented - RESPIRATORY Respiratory Status: Respiratory Rate WNL, Airway Patent, O2 Saturation Stable - CARDIOVASCULAR CV Status: Pulse Rate WNL, Blood Pressure Stable - GASTROINTESTINAL GI Status: No Symptoms - POST OP HYDRATION Hydration Status: Adequate & Stable
--- NOTE | 2018-03-13 10:48 | PCM48HPAN ---
Post Anesthesia Note - EVALUATION WITHIN 48HRS OF ANESTHETIC Vital Signs in Normal Range: Yes Patient Participated in Evaluation: Yes Respiratory Function Stable: Yes Airway Patent: Yes Cardiovascular Function Stable: Yes Hydration Status Stable: Yes Pain Control Satisfactory: Yes Nausea and Vomiting Control Satisfactory: Yes Mental Status Recovered: Yes Resp Rate: 11
[2018-03-13 11:16] VITALS: BP 142/77
--- NOTE | 2018-03-16 11:04 | OR ---
SURGEON: KOBE SIMON MD DATE OF PROCEDURE: 03/13/2018 PREOPERATIVE DIAGNOSES: 1. Right carpal tunnel syndrome. 2. Deep forehead lipoma. POSTOPERATIVE DIAGNOSES: 1. Right carpal tunnel syndrome. 2. Deep Submuscular forehead lipoma. PROCEDURES: Right carpal tunnel release and excision of deep submuscular central forehead lipoma. ANESTHESIA: General LMA with local. INDICATIONS: Mr. Pawel Leary is a 37-year-old gentleman seen today for bilateral carpal tunnel syndrome and a forehead lipoma. He will have the right release today and left in several weeks. The forehead lipoma has been bothersome to him and actually causes rubbing where his hat sits. Risks and benefits of excision were discussed with him and he was in agreement to proceed. Risks were including, but not limited to bleeding, infection, damage to underlying or overlying structures, possible need for future interventions, possible scarring. PROCEDURE IN DETAIL: After informed consent was obtained and placed on the chart, the patient was brought to the operating theater and laid in the supine position. After adequate general anesthesia was obtained, the area was prepped and draped, a time-out was completed to confirm side and site. Once adequately confirmed, attention was then paid to prepping and draping of the forehead and the arm. The forehead was draped with Betadine and the arm was prepped with ChloraPrep. Once adequately prepped and draped, a time-out was completed to confirm side and site. The arm was exsanguinated. The tourniquet was insufflated to 200 mmHg and the attention was paid to dissection of the transverse carpal ligament using a 15 blade through the skin and subcutaneous tissues until breach of the ligament. Dissection was carried distally and proximally under direct visualization until complete release. Once adequately released, the area was copiously irrigated and closed using a 5-0 nylon stitch in a horizontal mattress fashion. The wound was dressed with Xeroform fluffs and a Kerlix gauze dressing. The tourniquet was deflated at the end of the case. Attention was then paid to the forehead lipoma. Dissection was carried in a transverse hairline incision. Dissection was carried circumferentially around the lesion. Unfortunately, it was submuscular and the muscle was then cauterized, transected, and the submuscular lipoma was then dissected circumferentially. Once adequately circumferentially dissected, the lipoma was expressed and sent en bloc for pathology. The area was copiously irrigated and meticulous hemostasis was obtained. A small amount of tapering was undertaken to allow smoothing until closure with a 3-0 and 4-0 Monocryl stitch. Wound was dressed with Steri-Strips. The patient tolerated the procedure well. All counts needles were correct at the end of the case. FOLLOWUP INSTRUCTIONS: The patient will see us in 10 to 14 days, sooner if any problems, questions, or concerns. AIDEN / GINGER /[id number] TAJ
== END 2018-03-13 10:05 | disposition home or self-care (01) ==
LOC: MW.SDS 06:57
PROVIDERS: ATTEND Plastic Surgery
DX: G56.03 Carpal tunnel syndrome, bilateral upper limbs (principal); D17.79 Benign lipomatous neoplasm of other sites; F17.200 Nicotine dependence, unspecified, uncomplicated
CPT/HCPCS: 21014; 64721; 88304; J0690; J1885; J2250; J2405; J3010; J7120; 01810; J2704

== ENCOUNTER 2018-03-25 07:28 | Day surgery (SDC) | payer BC ==
[~2018-03-25 07:28] MED LIST: Lidocaine 2% 5 ML SDV ONE; Midazolam 1 MG/ML 2 ML SDV ONE; Propofol 200 MG/20 ML SDV ONE; fentaNYL 100 MCG/2 ML SDV ONE
--- NOTE | 2018-03-25 07:53 | PCM.PREANE ---
Preanesthetic Assessment - Anesthesia/Transfusion/Family Hx Anesthesia History: Prior Anesthesia Without Reaction Family History of Anesthesia Reaction: No Transfusion History: No Prior Transfusion(s) Intubation History: Unknown - Review of Systems General: No Symptoms Pulmonary: No Symptoms Cardiovascular: No Symptoms Gastrointestinal: No Symptoms Neurological: No Symptoms Other: Reports: None - Physical Assessment Height: 1.7 m Weight: 89.358 kg ASA Class: 2 Mental Status: Alert & Oriented x3 Airway Class: Mallampati = 1 Dentition: Reports: Normal Dentition Thyro-Mental Finger Breadths: 3 Mouth Opening Finger Breadths: 3 ROM/Head Extension: Full Lungs: Clear to Auscultation, Normal Respiratory Effort Cardiovascular: Regular Rate, Regular Rhythm - Allergies Allergies/Adverse Reactions: Allergies Allergy/AdvReac Type Severity Reaction Status Date / Time No Known Allergies Allergy Verified 03/20/18 11:54 - Blood Blood Available: No - Anesthesia Plan Pre-Op Medication Ordered: None - Acknowledgements Anesthesia Type Planned: MAC Pt an Appropriate Candidate for the Planned Anesthesia: Yes Alternatives and Risks of Anesthesia Discussed w Pt/Guardian: Yes Pt/Guardian Understands and Agrees with Anesthesia Plan: Yes PreAnesthesia Questionnaire - Past Health History Medical/Surgical History: Denies Medical/Surgical History HEENT History: Reports: None Cardiovascular History: Reports: Heart Murmur Respiratory History: Reports: None Gastrointestinal History: Reports: None Genitourinary History: Reports: None Musculoskeletal History: Reports: Other (See Below) Other Musculoskeletal History: 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) Neurological History: Reports: None Psychiatric History: Reports: None Endocrine/Metabolic History: Reports: Obesity/BMI 30+ Hematologic History: Reports: None Immunologic History: Reports: None Oncologic (Cancer) History: Reports: None Dermatologic History: Reports: None - Infectious Disease History Infectious Disease History: Reports: Chicken Pox - Past Surgical History Head Surgeries/Procedures: Reports: None HEENT Surgical History: Reports: None Cardiovascular Surgical History: Reports: None Respiratory Surgical History: Reports: None GI Surgical History: Reports: None Male Surgical History: Reports: None Endocrine Surgical History: Reports: None Neurological Surgical History: Reports: None Musculoskeletal Surgical History: Reports: Carpal Tunnel Oncologic Surgical History: Reports: None Dermatological Surgical History: Reports: Other (See Below) (exc. of forhead lipoma) - SUBSTANCE USE Smoking Status *Q: Former Smoker (quit a month ago) Second Hand Smoke Exposure: Yes Recreational Drug Use History: No - HOME MEDS Home Medications: Home Meds Hydrocodone/Acetaminophen [Hydrocodon-Acetaminophen 5-325] 1 tab PO ASDIRECTED PRN #30 tablet 03/25/18 [Rx] - CURRENT (IN HOUSE) MEDS Current Meds: Current Medications Hydrocodone Bitart/Acetaminophen (Vivian 325-5 Mg) 1 tab PO Q4H PRN PRN Reason: Pain Bupivacaine HCl/Epinephrine Bitart (Marcaine 0.25%/Epinephrine 1:200,000) 10 ml INJECT ONETIME ONE Stop: 03/25/18 08:01 Cefazolin Sodium/Dextrose 2 gm (/ Premix) 50 mls @ 100 mls/hr IV ONETIME ONE Stop: 03/25/18 08:29 Lactated Ringer's (Ringers, Lactated) 1,000 mls @ 125 mls/hr IV ASDIRECTED TOR Discontinued Medications Fentanyl (Sublimaze) Confirm Administered Dose 100 mcg .ROUTE .STK-MED ONE Stop: 03/25/18 07:25 Lidocaine (Xylocaine-Mpf 2%) Confirm Administered Dose 5 ml .ROUTE .STK-MED ONE Stop: 03/25/18 07:24 Midazolam HCl (Versed 1 Mg/Ml) Confirm Administered Dose 2 mg .ROUTE .STK-MED ONE Stop: 03/25/18 07:25 Propofol (Diprivan 20 Ml) Confirm Administered Dose 200 mg .ROUTE .STK-MED ONE Stop: 03/25/18 07:24
[2018-03-25] MEDS ORDERED: Bupivacaine 25%/EPINEPHrine/PF 30 ML ONE (07:59)
[2018-03-25] MEDS ORDERED: ceFAZolin 2 GM in Premix Bag 1 BAG IV ONE (08:00)
[2018-03-25] MEDS ORDERED: Bupivacaine 0.25%/EPINEPHrine 1:200,000 10 ML SDV INJECT ONE (08:00)
[2018-03-25] MEDS ORDERED: Lactated Ringers 1,000 ML IV SCH (08:00)
[2018-03-25] MEDS ORDERED: Acetaminophen/HYDROcodone 325-5 MG Tab PO PRN (08:00)
--- NOTE | 2018-03-25 08:33 | PCM.OPNOTE ---
- General Post-Op/Procedure Note Date of Surgery/Procedure: 03/25/18 Operative Procedure(s): left carpal tunnel release Pre Op Diagnosis: left carpal tunnel syndrome Post-Op Diagnosis: Same Anesthesia Technique: Local, MAC Primary Surgeon: Jazmin Escalante Complications: None Condition: Good
--- NOTE | 2018-03-25 09:31 | PCM48HPAN ---
Post Anesthesia Note - EVALUATION WITHIN 48HRS OF ANESTHETIC Vital Signs in Normal Range: Yes Patient Participated in Evaluation: Yes Respiratory Function Stable: Yes Airway Patent: Yes Cardiovascular Function Stable: Yes Hydration Status Stable: Yes Pain Control Satisfactory: Yes Nausea and Vomiting Control Satisfactory: Yes Mental Status Recovered: Yes Resp Rate: 16 - COMMENTS/OBSERVATIONS Free Text/Narrative:: no anesthesia problems, patient skipped recovery room phase of postoperative care
[2018-03-25 10:59] VITALS: BP 119/68
--- NOTE | 2018-03-25 12:25 | OR ---
SURGEON: KOBE SIMON MD DATE OF PROCEDURE: 03/25/2018 PREOPERATIVE DIAGNOSIS: Left carpal tunnel syndrome. POSTOPERATIVE DIAGNOSIS: Left carpal tunnel syndrome. PROCEDURE PERFORMED: Left carpal tunnel release. ANESTHESIA: Local MAC. INDICATIONS: Mr. Pawel Leary is a 37-year-old gentleman with left carpal tunnel syndrome. He has previously had his right carpal tunnel release and has done well with this. He is here for the left side. The risks were including, but not limited to, bleeding, infection, damage to underlying or overlying structures, possible need for future interventions, and possible scarring. He was in agreement to proceed. PROCEDURE IN DETAIL: After informed consent was obtained and placed on the chart, the patient was brought to the operating theater and laid in the supine position. After adequate local MAC anesthesia was obtained, the area was prepped and draped, and a time-out was completed to confirm side and site. 0.25% Marcaine with epinephrine was infiltrated into the area and the arm was exsanguinated, and tourniquet was insufflated to 200 mmHg. A #15 blade was used to dissect through the skin and subcutaneous tissues until breach of the ligament. Dissection was then carried distally and proximally under direct visualization until complete release. The area was copiously irrigated and a 5- 0 nylon stitch was used to close the skin in a horizontal mattress fashion. Once completed, the wound was dressed with Xeroform fluffs and a Kerlix gauze dressing, and a 2-inch Herman wrap. The patient tolerated this well, and all counts and needles were correct at the end of the case. FOLLOWUP INSTRUCTIONS: The patient will see us in 10 to 14 days or sooner if there are any problems, questions, or concerns. He was given a prescription for [place]. HEGGTHE / MODL /[id number]
== END 2018-03-25 10:00 | disposition home or self-care (01) ==
LOC: MW.SDS 07:28
PROVIDERS: ATTEND Plastic Surgery
DX: G56.02 Carpal tunnel syndrome, left upper limb (principal)
CPT/HCPCS: 64721; J2250; J3010; J7120; J2704

== ENCOUNTER 2018-07-07 19:05 | Emergency (ER) | payer BC ==
--- NOTE | 2018-07-07 19:52 | EDM.PDOC ---
ED HPI GENERAL MEDICAL PROBLEM - General Chief Complaint: Gastrointestinal Problem Stated Complaint: CAN'T KEEP ANY FOOD DOWN Time Seen by Provider: 07/07/18 19:46 - History of Present Illness INITIAL COMMENTS - FREE TEXT/NARRATIVE: HISTORY AND PHYSICAL: History of present illness: Patient is a 37-year-old male presents concern of vomiting diarrhea 1 day feels may be related to some bad food he ate at a fast food restaurant he denies fever chills chest pain shortness breath or any other concern he has no chronic medical problems he does smoke he denies alcohol or drug abuse Review of systems: As per history of present illness and below otherwise all systems reviewed and negative. Past medical history: As per history of present illness and as reviewed below otherwise noncontributory. Surgical history: As per history of present illness and as reviewed below otherwise noncontributory. Social history: No reported history of drug or alcohol abuse. Family history: As per history of present illness and as reviewed below otherwise noncontributory. Physical exam: HEENT: Atraumatic, normocephalic, pupils reactive, negative for conjunctival pallor or scleral icterus, mucous membranes dry throat clear, neck supple, nontender, trachea midline. Lungs: Clear to auscultation, breath sounds equal bilaterally, chest nontender. Heart: S1S2, regular, negative for clicks, rubs, or JVD. Abdomen: Soft, nondistended, nontender. Negative for masses or hepatosplenomegaly. Negative for costovertebral tenderness. Pelvis: Stable nontender. Genitourinary: Deferred. Rectal: Deferred. Extremities: Atraumatic, negative for cords or calf pain. Neurovascular unremarkable. Neuro: Awake, alert, oriented. Cranial nerves II through XII unremarkable. Cerebellum unremarkable. Motor and sensory unremarkable throughout. Exam nonfocal. Diagnostics: CBC CMP stool for C&S O&P C. difficile if obtainable Therapeutics: Saline 1 L bolus Zofran 4 mg IV Impression: #1 vomiting/diarrhea with dehydration Definitive disposition and diagnosis as appropriate pending reevaluation and review of above. Abdomen Pain Score (Numeric/FACES): 5 - Related Data Allergies Allergy/AdvReac Type Severity Reaction Status Date / Time No Known Allergies Allergy Verified 07/07/18 19:36 Home Meds: Home Meds . 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) Neurological History: Reports: None Psychiatric History: Reports: None Endocrine/Metabolic History: Reports: Obesity/BMI 30+ Hematologic History: Reports: None Immunologic History: Reports: None Oncologic (Cancer) History: Reports: None Dermatologic History: Reports: None - Infectious Disease History Infectious Disease History: Reports: Chicken Pox - Past Surgical History Head Surgeries/Procedures: Reports: None HEENT Surgical History: Reports: None Cardiovascular Surgical History: Reports: None Respiratory Surgical History: Reports: None GI Surgical History: Reports: None Male Surgical History: Reports: None Endocrine Surgical History: Reports: None Neurological Surgical History: Reports: None Musculoskeletal Surgical History: Reports: Carpal Tunnel Oncologic Surgical History: Reports: None Dermatological Surgical History: Reports: Other (See Below) Social & Family History - Family History Family Medical History: Noncontributory - Tobacco Use Smoking Status *Q: Current Every Day Smoker Years of Tobacco use: 15 Packs/Tins Daily: 0.5 - Caffeine Use Caffeine Use: Reports: None Caffeine Use Comment: 1 cup per day ED ROS GENERAL - Review of Systems Review Of Systems: ROS reveals no pertinent complaints other than HPI. ED EXAM, GENERAL - Physical Exam Exam: See Below (See dictation) Course - Vital Signs Last Recorded V/S: Last Vital Signs Temp 37.0 C 07/07/18 19:33 Pulse 79 07/07/18 19:33 Resp 16 07/07/18 19:33 BP 120/72 07/07/18 19:33 Pulse Ox 97 07/07/18 19:33 - Orders/Labs/Meds Orders: Active Orders 24 hr Category Date Time Status CDIFF TOX A+B [OP] Stat Lab 07/07/18 19:53 Ordered CULTURE STOOL + CAMPY+SHIGATOX [RM] Stat Lab 07/07/18 19:53 Ordered Labs: Laboratory Tests 07/07/18 07/07/18 Range/Units 19:45 19:45 WBC 5.21 (4.0-11.0) K/uL RBC 4.80 (4.50-5.90) M/uL Hgb 14.3 (13.0-17.0) g/dL Hct 41.5 (38.0-50.0) % MCV 86.5 (80.0-98.0) fL MCH 29.8 (27.0-32.0) pg MCHC 34.5 (31.0-37.0) g/dL RDW Std Deviation 42.0 (28.0-62.0) fl RDW Coeff of Katheryn 13 (11.0-15.0) % Plt Count 145 L (150-400) K/uL MPV 11.70 (7.40-12.00) fL Neut % (Auto) 70.0 (48.0-80.0) % Lymph % (Auto) 21.3 (16.0-40.0) % [place] % (Auto) 7.9 (0.0-15.0) % Eos % (Auto) 0.4 (0.0-7.0) % Baso % (Auto) 0.4 (0.0-1.5) % Neut # (Auto) 3.7 (1.4-5.7) K/uL Lymph # (Auto) 1.1 (0.6-2.4) K/uL [place] # (Auto) 0.4 (0.0-0.8) K/uL Eos # (Auto) 0.0 (0.0-0.7) K/uL Baso # (Auto) 0.0 (0.0-0.1) K/uL Nucleated RBC % 0.0 /100WBC Nucleated RBCs # 0 K/uL Sodium 138 (136-148) mmol/L Potassium 3.3 L (3.5-5.1) mmol/L Chloride 103 (98-107) mmol/L Carbon Dioxide 24.5 (21.0-32.0) mmol/L BUN 13 (7.0-18.0) mg/dL Creatinine 1.0 (0.8-1.3) mg/dL Est Cr Clr Drug Dosing 98.80 mL/min Estimated GFR (MDRD) > 60.0 ml/min Glucose 95 (74-106) mg/dL Calcium 8.2 L (8.5-10.1) mg/dL Total Bilirubin 0.5 (0.2-1.0) mg/dL AST 15 (15-37) IU/L ALT 30 (14-63) IU/L Alkaline Phosphatase 87 (46-116) U/L Total Protein 7.7 (6.4-8.2) g/dL Albumin 4.1 (3.4-5.0) g/dL Globulin 3.6 H (2.0-3.5) g/dL Albumin/Globulin Ratio 1.1 L (1.3-2.8) Meds: Medications Discontinued Medications Generic Name Dose Route Start Last Admin Trade Name Freq PRN Reason Stop Dose Admin Sodium Chloride 1,000 mls @ 999 mls/hr 07/07/18 20:09 07/07/18 20:17 Normal Saline IV 07/07/18 21:09 999 mls/hr STAT ONE Administration Ondansetron HCl 4 mg 07/07/18 20:09 07/07/18 20:15 Zofran IVPUSH 07/07/18 20:10 4 mg ONETIME ONE Administration Departure - Departure Time of Disposition: 21:25 Disposition: Home, Self-Care 01 Condition: Good Clinical Impression: Vomiting, Diarrhea, Dehydration - Discharge Information *PRESCRIPTION DRUG MONITORING PROGRAM REVIEWED*: Not Applicable *COPY OF PRESCRIPTION DRUG MONITORING REPORT IN PATIENT KEREN: Not Applicable Forms: ED Department Discharge Additional Instructions: The following information is given to patients seen in the emergency department who are being discharged to home. This information is to outline your options for follow-up care. We provide all patients seen in our emergency department with a follow-up referral. The need for follow-up, as well as the timing and circumstances, are variable depending upon the specifics of your emergency department visit. If you don't have a primary care physician on staff, we will provide you with a referral. We always advise you to contact your personal physician following an emergency department visit to inform them of the circumstance of the visit and for follow-up with them and/or the need for any referrals to a consulting specialist. The emergency department will also refer you to a specialist when appropriate. This referral assures that you have the opportunity for followup care with a specialist. All of these measure are taken in an effort to provide you with optimal care, which includes your followup. Under all circumstances we always encourage you to contact your private physician who remains a resource for coordinating your care. When calling for followup care, please make the office aware that this follow-up is from your recent emergency room visit. If for any reason you are refused follow-up, please contact the [facility] emergency department at and asked to speak to the emergency department charge nurse. [facility] [address] [place] [id number] Push fluids clear liquids as directed Zofran as prescribed follow-up primary medical doctor and/or clinic above return as needed as discussed - My Orders Last 24 Hours: My Active Orders 07/07/18 19:53 CDIFF TOX A+B [OP] Stat CULTURE STOOL + CAMPY+SHIGATOX [RM] Stat - Assessment/Plan Last 24 Hours: My Active Orders 07/07/18 19:53 CDIFF TOX A+B [OP] Stat CULTURE STOOL + CAMPY+SHIGATOX [RM] Stat
[2018-07-07] MEDS ORDERED: Ondansetron 4 MG/2 ML SDV IVPUSH ONE (20:09)
[2018-07-07] MEDS ORDERED: Sodium Chloride 0.9% 1,000 ML IV ONE (20:09)
[2018-07-07 20:15] LABS: CHLORIDE,CL 103 mmol/L (98-107); SODIUM,NA 138 mmol/L (136-148)
[2018-07-07 21:37] VITALS: BP 122/74
== END 2018-07-07 21:38 | disposition home or self-care (01) ==
LOC: MW.ED 19:05
DX: R11.10 Vomiting, unspecified (principal); R19.7 Diarrhea, unspecified; E86.0 Dehydration; F17.210 Nicotine dependence, cigarettes, uncomplicated; E66.9 Obesity, unspecified
CPT/HCPCS: 36415; 80053; 85025; 96361; 96374; 99284; J2405; J7040; 99283

== ENCOUNTER 2019-09-17 15:29 | Emergency (ER) | payer BC ==
--- NOTE | 2019-09-17 15:49 | EDM.PDOC ---
ED HPI GENERAL MEDICAL PROBLEM - General Chief Complaint: Lower Extremity Injury/Pain Stated Complaint: ROLLED ANKLE Time Seen by Provider: 09/17/19 15:47 Source of Information: Reports: Patient History Limitations: Reports: No Limitations - History of Present Illness INITIAL COMMENTS - FREE TEXT/NARRATIVE: HISTORY AND PHYSICAL: History of present illness: Patient is a 39-year-old male presents to the ED with complaint of right ankle injury. He states he rolled his ankle playing basketball yesterday and has no been able to bear weight on it. He denies proximal pain or other injury. Review of systems: As per history of present illness and below otherwise all systems reviewed and negative. Past medical history: As per history of present illness and as reviewed below otherwise noncontributory. Surgical history: As per history of present illness and as reviewed below otherwise noncontributory. Social history: No reported history of drug or alcohol abuse. Family history: As per history of present illness and as reviewed below otherwise noncontributory. Physical exam: General: Patient sitting comfortably in no acute distress and nontoxic appearing HEENT: Atraumatic, normocephalic, pupils reactive, negative for conjunctival pallor or scleral icterus, mucous membranes moist, throat clear, neck supple, nontender, trachea midline. No meningeal signs. Lungs: Clear to auscultation, breath sounds equal bilaterally, chest nontender. Heart: S1S2, regular, negative for clicks, rubs, or overt murmur. Abdomen: Soft, nondistended, nontender. Negative for masses or hepatosplenomegaly. Negative for costovertebral tenderness. No rigidity, rebound , guarding. Pelvis: Stable nontender. Genitourinary: Deferred. Rectal: Deferred. Extremities: Right lateral malleolus is swollen with ecchymosis, mild swelling to the medial malleolus. No proximal pain to palpation. negative for cords or calf pain. Neurovascular unremarkable. Neuro: Awake, alert, oriented. Cranial nerves II through XII unremarkable. Cerebellum unremarkable. Motor and sensory unremarkable throughout. Exam nonfocal. Notes: Discussed with Dr. Crowder, orthopedics, he will see patient in the clinic Friday. Patient needs to be NPO for surgery Friday Diagnostics: x-ray right ankle x-ray right foot Therapeutics: Prefab post mold splint Crutches Prescriptions: [place] Impression: Right ankle injury, distal fibular and medial malleolar fractures Plan: Ice, elevate and you may take norco as needed for severe pain. Do not take while driving as it may make you drowsy Follow up with Dr. Crowder, orthopedics, on Friday. Please call first thing in the morning to schedule your appointment. Do not have anything to eat or drink starting after midnight the day before. Return to ED as needed as discussed Definitive disposition and diagnosis as appropriate pending reevaluation and review of above. Right Ankle Pain Score (Numeric/FACES): 8 - Related Data Allergies Allergy/AdvReac Type Severity Reaction Status Date / Time No Known Allergies Allergy Verified 09/17/19 15:45 Home Meds: Home Meds Hydrocodone/Acetaminophen [Hydrocodon-Acetaminophen 5-325] 1 each PO Q6HR PRN # 15 tablet 09/17/19 [Rx] Past Medical History - Past Health History Medical/Surgical History: Denies Medical/Surgical History HEENT History: Reports: None Cardiovascular History: Reports: Heart Murmur Respiratory History: Reports: None Gastrointestinal History: Reports: None Genitourinary History: Reports: None Musculoskeletal History: Reports: Other (See Below) Other Musculoskeletal History: 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) Neurological History: Reports: None Psychiatric History: Reports: None Endocrine/Metabolic History: Reports: Obesity/BMI 30+ Hematologic History: Reports: None Immunologic History: Reports: None Oncologic (Cancer) History: Reports: None Dermatologic History: Reports: None - Infectious Disease History Infectious Disease History: Reports: Chicken Pox - Past Surgical History Head Surgeries/Procedures: Reports: None HEENT Surgical History: Reports: None Cardiovascular Surgical History: Reports: None Respiratory Surgical History: Reports: None GI Surgical History: Reports: None Male Surgical History: Reports: None Endocrine Surgical History: Reports: None Neurological Surgical History: Reports: None Musculoskeletal Surgical History: Reports: Carpal Tunnel Oncologic Surgical History: Reports: None Dermatological Surgical History: Reports: Other (See Below) Social & Family History - Family History Family Medical History: Noncontributory - Caffeine Use Caffeine Use: Reports: None Caffeine Use Comment: 1 cup per day Review of Systems - Review of Systems Review Of Systems: ROS reveals no pertinent complaints other than HPI. ED EXAM, GENERAL - Physical Exam Exam: See Below (see dictation) Course - Vital Signs Last Recorded V/S: Last Vital Signs Temp 97 F 11/01/19 15:47 Pulse 91 09/17/19 15:47 Resp 16 09/17/19 15:47 BP 132/76 09/17/19 15:47 Pulse Ox 98 09/17/19 15:47 Departure - Departure Time of Disposition: 16:45 Disposition: Home, Self-Care 01 Condition: Good Clinical Impression: Medial malleolar fracture, Fracture of distal end of fibula - Discharge Information Referrals: Shahana cA DO [Primary Care Provider] - Forms: ED Department Discharge Additional Instructions: The following information is given to patients seen in the emergency department who are being discharged to home. This information is to outline your options for follow-up care. We provide all patients seen in our emergency department with a follow-up referral. The need for follow-up, as well as the timing and circumstances, are variable depending upon the specifics of your emergency department visit. If you don't have a primary care physician on staff, we will provide you with a referral. We always advise you to contact your personal physician following an emergency department visit to inform them of the circumstance of the visit and for follow-up with them and/or the need for any referrals to a consulting specialist. The emergency department will also refer you to a specialist when appropriate. This referral assures that you have the opportunity for follow-up care with a specialist. All of these measure are taken in an effort to provide you with optimal care, which includes your follow-up. Under all circumstances we always encourage you to contact your private physician who remains a resource for coordinating your care. When calling for follow-up care, please make the office aware that this follow-up is from your recent emergency room visit. If for any reason you are refused follow-up, please contact the [facility] Emergency Department at and asked to speak to the emergency department charge nurse. [facility] Special[facility] Care - Orthopedic [facility] Professional Building [address] [place] [address], [address] [place] [address] Ice, elevate and you may take norco as needed for severe pain. Do not take while driving as it may make you drowsy Follow up with Dr. Crowder, orthopedics, on [place]. Please call first thing in the morning to schedule your appointment. Do not have anything to eat or drink starting after midnight the day before. Return to ED as needed as discussed
--- NOTE | 2019-09-17 16:30 | CR ---
Indication: Injury. Technique: Three views of the right ankle were obtained. Comparison: None Findings: An avulsion of the distal medial malleolus is identified. A fracture of the distal fibula is identified. The ankle mortise is intact. Questionable widening of the medial tibiotalar joint space is identified. Impression: Medial malleolar fracture. Distal fibular fracture. Questionable widening of the medial tibiotalar joint space. Dictated by Altagracia Govea MD @ Sep 17 2019 4:28PM Signed by Dr. Altagracia Govea @ Sep 17 2019 4:29PM
--- NOTE | 2019-09-17 16:30 | CR ---
Indication: Injury. Technique: Three views of the right foot were obtained. Comparison: None Findings: A distal fibular fracture is identified. Medial malleolar fracture is identified. No fracture or subluxation of the foot is identified. Impression: Distal tibia and fibular fracture. Dictated by Altagracia Govea MD @ Sep 17 2019 4:29PM Signed by Dr. Altagracia Govea @ Sep 17 2019 4:29PM
[2019-09-17 17:00] VITALS: BP 126/70; PULSE 68
== END 2019-09-17 16:59 | disposition home or self-care (01) ==
LOC: MW.ED 15:29
DX: S82.51XA Displaced fracture of medial malleolus of right tibia, initial encounter for closed fracture (principal); S82.831A Other fracture of upper and lower end of right fibula, initial encounter for closed fracture; S82.201A Unspecified fracture of shaft of right tibia, initial encounter for closed fracture; I10 Essential (primary) hypertension; E66.9 Obesity, unspecified; Z68.36 Body mass index [BMI] 36.0-36.9, adult; X50.1XXA Overexertion from prolonged static or awkward postures, initial encounter; Y93.67 Activity, basketball
CPT/HCPCS: 29515; 73610-26-RT; 73610-RT; 73620-26-RT; 73620-RT; 99283; 99283-25

== ENCOUNTER 2019-09-22 08:03 | Day surgery (SDC) | payer BC ==
[2019-09-22] MEDS ORDERED: fentaNYL 250 MCG/5 ML SDV ONE (08:34)
[2019-09-22] MEDS ORDERED: Midazolam 1 MG/ML 2 ML SDV ONE (08:34)
[2019-09-22] MEDS ORDERED: Propofol 200 MG/20 ML SDV ONE (08:34)
[2019-09-22] MEDS ORDERED: Ondansetron 4 MG/2 ML SDV ONE (08:35)
[2019-09-22] MEDS ORDERED: Dexamethasone 4 MG/ML 5 ML MDV ONE (08:35)
[2019-09-22] MEDS ORDERED: Lidocaine 2% 5 ML SDV ONE (08:35)
--- NOTE | 2019-09-22 08:47 | PCM.PREANE ---
Preanesthetic Assessment - Anesthesia/Transfusion/Family Hx Anesthesia History: Prior Anesthesia Without Reaction Family History of Anesthesia Reaction: No Transfusion History: No Prior Transfusion(s) Intubation History: Unknown - Review of Systems General: No Symptoms Pulmonary: No Symptoms Cardiovascular: No Symptoms Gastrointestinal: No Symptoms Neurological: No Symptoms Other: Reports: None - Physical Assessment Height: 5 ft 8 in Weight: 108.862 kg ASA Class: 2 Mental Status: Alert & Oriented x3 Dentition: Reports: Normal Dentition Lungs: Clear to Auscultation, Normal Respiratory Effort Cardiovascular: Regular Rate, Regular Rhythm - Allergies Allergies/Adverse Reactions: Allergies Allergy/AdvReac Type Severity Reaction Status Date / Time No Known Allergies Allergy Verified 09/20/19 15:59 - Blood Blood Available: No - Anesthesia Plan Pre-Op Medication Ordered: None - Acknowledgements Anesthesia Type Planned: General Anesthesia Pt an Appropriate Candidate for the Planned Anesthesia: Yes Alternatives and Risks of Anesthesia Discussed w Pt/Guardian: Yes Pt/Guardian Understands and Agrees with Anesthesia Plan: Yes Additional Comments: PMH: obesity, smoker PLAN: ga/lma PreAnesthesia Questionnaire - Past Health History Medical/Surgical History: Denies Medical/Surgical History HEENT History: Reports: Other (See Below) Other HEENT History: wears glasses, hx of Keratoconus left eye Cardiovascular History: Reports: Heart Murmur Respiratory History: Reports: None Gastrointestinal History: Reports: None Genitourinary History: Reports: None Musculoskeletal History: Reports: Other (See Below) Other Musculoskeletal History: 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) Neurological History: Reports: None Psychiatric History: Reports: None Endocrine/Metabolic History: Reports: Obesity/BMI 30+ Hematologic History: Reports: None Immunologic History: Reports: None Oncologic (Cancer) History: Reports: None Dermatologic History: Reports: None - Infectious Disease History Infectious Disease History: Reports: Chicken Pox - Past Surgical History Head Surgeries/Procedures: Reports: None Musculoskeletal Surgical History: Reports: Carpal Tunnel Other Musculoskeletal Surgeries/Procedures:: hx of bilateral CTR - SUBSTANCE USE Smoking Status *Q: Current Some Day Smoker Tobacco Use Within Last Twelve Months: Cigarettes Recreational Drug Use History: No - HOME MEDS Home Medications: Home Meds Hydrocodone/Acetaminophen [Hydrocodon-Acetaminophen 5-325] 1 each PO Q6HR PRN # 15 tablet 09/17/19 [Rx] - CURRENT (IN HOUSE) MEDS Current Meds: Current Medications Discontinued Medications Dexamethasone (Dexamethasone) Confirm Administered Dose 20 mg .ROUTE .STK-MED ONE Stop: 09/22/19 08:36 Fentanyl (Sublimaze) Confirm Administered Dose 250 mcg .ROUTE .STK-MED ONE Stop: 09/22/19 08:35 Lidocaine (Xylocaine-Mpf 2%) Confirm Administered Dose 5 ml .ROUTE .STK-MED ONE Stop: 09/22/19 08:36 Midazolam HCl (Versed 1 Mg/Ml) Confirm Administered Dose 2 mg .ROUTE .STK-MED ONE Stop: 09/22/19 08:35 Ondansetron HCl (Zofran) Confirm Administered Dose 4 mg .ROUTE .STK-MED ONE Stop: 09/22/19 08:36 Propofol (Diprivan 20 Ml) Confirm Administered Dose 200 mg .ROUTE .STK-MED ONE Stop: 09/22/19 08:35
[2019-09-22] MEDS ORDERED: Lactated Ringers 1,000 ML IV SCH (09:00)
[2019-09-22] MEDS ORDERED: Bupivacaine 0.25% 10 ML SDV ONE (09:40)
[2019-09-22] MEDS ORDERED: ceFAZolin 1 GM Vial ONE ×2 (09:40→09:45)
[2019-09-22] MEDS ORDERED: Sodium Chloride 0.9% 20 ML ONE (09:45)
[2019-09-22] MEDS ORDERED: Albuterol 6.7 GM Inhaler INH ONE (10:05)
[2019-09-22] MEDS ORDERED: Ketorolac 30 MG/ML SDV ONE (10:28)
[2019-09-22] MEDS ORDERED: HYDROmorphone 1 MG/ML Syringe IVPUSH ONE ×2 (11:18→12:25)
[2019-09-22] MEDS ORDERED: Acetaminophen 1,000 MG in Premix Bag 1 BAG IV ONE (11:18)
[2019-09-22] MEDS ORDERED: Ibuprofen 800 MG Tab PO PRN (11:18)
[2019-09-22] MEDS ORDERED: fentaNYL 100 MCG/2 ML SDV IVPUSH PRN (11:20)
[2019-09-22] MEDS: fentaNYL 100 MCG/2 ML SDV IVPUSH PRN ×2 (11:32→11:33)
--- NOTE | 2019-09-22 12:04 | PCM.POSTAN ---
POST ANESTHESIA ASSESSMENT - MENTAL STATUS Mental Status: Alert, Oriented - VITAL SIGNS Vital Signs: Last Vital Signs Temp 100.0 F 09/22/19 11:12 Pulse 72 09/22/19 11:57 Resp 14 09/22/19 11:57 BP 143/76 H 09/22/19 11:57 Pulse Ox 96 09/22/19 11:57 - RESPIRATORY Respiratory Status: Respiratory Rate WNL, Airway Patent, O2 Saturation Stable - CARDIOVASCULAR CV Status: Pulse Rate WNL, Blood Pressure Stable - GASTROINTESTINAL GI Status: No Symptoms - POST OP HYDRATION Hydration Status: Adequate & Stable
[2019-09-22] MEDS ORDERED: oxyCODONE 5 MG Tab PO ONE (12:26)
[2019-09-22] MEDS ORDERED: oxyCODONE ER 10 MG TAB.ER ONE (12:30)
[2019-09-22] MEDS ORDERED: HYDROmorphone 2 MG/ML Syringe ONE (12:31)
[2019-09-22 12:59] VITALS: BP 134/66; PULSE 74
--- NOTE | 2019-09-22 13:32 | PCM48HPAN ---
Post Anesthesia Note - EVALUATION WITHIN 48HRS OF ANESTHETIC Vital Signs in Normal Range: Yes Patient Participated in Evaluation: Yes Respiratory Function Stable: Yes Airway Patent: Yes Cardiovascular Function Stable: Yes Hydration Status Stable: Yes Pain Control Satisfactory: Yes Nausea and Vomiting Control Satisfactory: Yes Mental Status Recovered: Yes Vital Signs: Last Vital Signs Temp 97.5 F 09/22/19 12:15 Pulse 74 09/22/19 12:45 Resp 16 09/22/19 12:45 BP 134/66 09/22/19 12:45 Pulse Ox 99 09/22/19 12:45
--- NOTE | 2019-09-22 16:29 | CR ---
EXAM DATE: 09/22/19 PATIENT'S AGE: 39 Ankle: Three fluoroscopic spot views were obtained of the right ankle. Comparison: No previous study. Distal fibular fracture is seen. Fracture is affixed with plate and screws. Ankle mortise is symmetric. No additional abnormality is seen on this exam. Impression: 1. Procedural study as noted above. Diagnostic code #2 Report Signed by Proxy. TAJ
[2019-09-23] MEDS ORDERED: Aspirin 325 MG Tab.EC PO SCH (09:00)
--- NOTE | 2019-09-24 13:52 | PCM.OPNOTE ---
- General Post-Op/Procedure Note Date of Surgery/Procedure: 09/22/19 Operative Procedure(s): Open reduction and internal fixation of right lateral malleolus ankle fracture Findings: Displaced lateral malleolus ankle fracture with medial mortise widening Pre Op Diagnosis: Right displaced lateral malleolus ankle fracture Post-Op Diagnosis: Right displaced lateral malleolus ankle fracture Anesthesia Technique: General LMA Primary Surgeon: Maykel Crowder Senior Marketing Analyst: Latasha Alvarado Reason Senior Marketing Analyst Was Necessary: Asst. needed for retraction and positioning Complications: None Free Text/Narrative:: Patient is a 39-year-old male who injured his right ankle playing basketball. He was seen in the emergency room and noted to have a lateral malleolus ankle fracture with medial widening of the mortise. He was seen in clinic for discussion of treatment options. Because of the unstable nature of the fracture pattern, I recommended surgery with open reduction and internal fixation. The risks and benefits of surgery were discussed with patient and his family. All questions were answered and he wished to proceed with surgery. Patient was taken to the operating room. After general anesthesia he remained in the supine position. A bump was placed underneath his right buttock. A Leon was placed around the right upper thigh. The right lower extremity is prepped and draped in usual sterile manner. The leg elevated the tourniquet inflated. A longitudinal incision was made along the posterior border of the distal fibula. Skin was incised with the scalpel. Subcutaneous tissue was incised with electrocautery. The fascia over the peroneal tendons was opened with the scissors with care taken to protect the superficial peroneal nerve. The fracture site was identified and periosteum elevated with an elevator. The fracture was reduced with a clamp. A 5 hole one third tubular plate was applied with 2 holes distal to the fracture line. Bicortical screws were then placed in the second and third holes. With the fracture reduced anatomically and the clamp in place, 2 lag screws were placed through the fourth and fifth holes. The clamp was removed and the fracture remained reduced anatomically. A bicortical screw was placed in the first hole. C-arm was used to evaluate the reduction and the reduction was noted to be anatomic with the mortise intact. Mortise did not gap with stress testing. Wounds were then irrigated. Fascia was closed with interrupted #1 Vicryl suture. Subcutaneous tissue was closed with interrupted 2-0 Vicryl suture. Skin was closed with 3-0 Monocryl running subcuticular suture. Steri-Strips were applied and a sterile dressing applied. A U-shaped splint was applied and the patient was accompanied to the recovery room in stable condition. Patient will have ibuprofen and oxycodone for pain medication. He should not have any oxycodone refills. He does not require postoperative antibiotics. Patient has been advised to take enteric-coated aspirin 325 mg each day for 90 days for venous thromboembolism prophylaxis. Patient should remain in the splint for 2 weeks and be seen in clinic at 2 weeks. After removal of the splint, he should be placed in a fracture boot. He is nonweightbearing for 6 weeks after surgery. At 6 weeks he may begin weightbearing as tolerated in the fracture boot for an additional 6 weeks before discontinuing the boot.
== END 2019-09-22 15:15 | disposition home or self-care (01) ==
LOC: MW.SDS 08:03
PROVIDERS: ATTEND Orthopaedic Surgery
DX: S82.61XA Displaced fracture of lateral malleolus of right fibula, initial encounter for closed fracture (principal); F17.210 Nicotine dependence, cigarettes, uncomplicated; M18.0 Bilateral primary osteoarthritis of first carpometacarpal joints; E66.9 Obesity, unspecified; W51.XXXA Accidental striking against or bumped into by another person, initial encounter; Y93.67 Activity, basketball; Z68.36 Body mass index [BMI] 36.0-36.9, adult
CPT/HCPCS: A9270-GY; C1713; J0131; J0690; J1100; J1170; J1885; J2001; J2250; J2405; J2704; J3010; J3490; J7120

== ENCOUNTER 2019-12-15 09:30 | Emergency (ER) | payer BC ==
--- NOTE | 2019-12-15 10:00 | EDM.PDOC ---
ED HPI GENERAL MEDICAL PROBLEM - General Chief Complaint: Upper Extremity Injury/Pain Stated Complaint: RT SHOULDER PAIN Time Seen by Provider: 12/15/19 09:52 Source of Information: Reports: Patient History Limitations: Reports: No Limitations - History of Present Illness INITIAL COMMENTS - FREE TEXT/NARRATIVE: HISTORY AND PHYSICAL: History of present illness: Patient is a 39-year-old male presents to the ED with complaint of right shoulder pain. Patient states he woke up Friday after sleeping on his right side /shoulder with pain. He states he has had this before and normally it gets better after a day but states it has persisted. He denies any injury or trauma. He states his shoulder does bother him on occasion and feels weaker when he is lifting weights. He denies neck pain or distal pain/numbness/tingling. Review of systems: As per history of present illness and below otherwise all systems reviewed and negative. Past medical history: As per history of present illness and as reviewed below otherwise noncontributory. Surgical history: As per history of present illness and as reviewed below otherwise noncontributory. Social history: No reported history of drug or alcohol abuse. Family history: As per history of present illness and as reviewed below otherwise noncontributory. Physical exam: General: Patient sitting comfortably in no acute distress and nontoxic appearing HEENT: Atraumatic, normocephalic, pupils reactive, negative for conjunctival pallor or scleral icterus, mucous membranes moist, throat clear, neck supple, nontender, trachea midline. No meningeal signs. Lungs: Clear to auscultation, breath sounds equal bilaterally, chest nontender. Heart: S1S2, regular, negative for clicks, rubs, or overt murmur. Abdomen: Soft, nondistended, nontender. Negative for masses or hepatosplenomegaly. Negative for costovertebral tenderness. No rigidity, rebound , guarding. Pelvis: Stable nontender. Genitourinary: Deferred. Rectal: Deferred. Extremities: No pain to palpation of right shoulder. Pain with abduction and internal rotation. Atraumatic, negative for cords or calf pain. Neurovascular unremarkable. Neuro: Awake, alert, oriented. Cranial nerves II through XII unremarkable. Cerebellum unremarkable. Motor and sensory unremarkable throughout. Exam nonfocal. Notes: Diagnostics: Right shoulder x-ray Therapeutics: Declined sling Prescriptions: Diclofenac Impression: Right shoulder pain Plan: 1. Ice, elevate, and motrin or tylenol as needed 2. Follow up with orthopedics, please call the number provided to schedule an appointment 3. Return to ED as needed as discussed Definitive disposition and diagnosis as appropriate pending reevaluation and review of above. Treatments TRUST OFFICER: Reports: Acetaminophen shoulder Pain Score (Numeric/FACES): 7 - Related Data Allergies Allergy/AdvReac Type Severity Reaction Status Date / Time No Known Allergies Allergy Verified 12/15/19 09:44 Home Meds: Home Meds Hydrocodone/Acetaminophen [Hydrocodon-Acetaminophen 5-325] 1 each PO Q6HR PRN # 15 tablet 09/17/19 [Rx] Aspirin [Ecotrin EC] 325 mg PO DAILY #90 tab.ec 09/22/19 [Rx] Ibuprofen [Motrin] 800 mg PO Q6H PRN #100 tablet 09/22/19 [Rx] Acetaminophen [Tylenol] 325 mg PO 12/15/19 [History] Diclofenac Sodium [Voltaren] 75 mg PO BIDMEALS #20 tab.cr 12/15/19 [Rx] Past Medical History - Past Health History Medical/Surgical History: Denies Medical/Surgical History HEENT History: Reports: Other (See Below) Other HEENT History: wears glasses, hx of Keratoconus left eye Cardiovascular History: Reports: Heart Murmur Respiratory History: Reports: None Gastrointestinal History: Reports: None Genitourinary History: Reports: None Musculoskeletal History: Reports: Other (See Below) Other Musculoskeletal History: 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) Neurological History: Reports: None Psychiatric History: Reports: None Endocrine/Metabolic History: Reports: Obesity/BMI 30+ Hematologic History: Reports: None Immunologic History: Reports: None Oncologic (Cancer) History: Reports: None Dermatologic History: Reports: None - Infectious Disease History Infectious Disease History: Reports: Chicken Pox - Past Surgical History Head Surgeries/Procedures: Reports: None Musculoskeletal Surgical History: Reports: Carpal Tunnel Other Musculoskeletal Surgeries/Procedures:: hx of bilateral CTR Social & Family History - Family History Family Medical History: Noncontributory - Tobacco Use Smoking Status *Q: Current Every Day Smoker Years of Tobacco use: 10 Packs/Tins Daily: 0.5 - Caffeine Use Caffeine Use: Reports: None Caffeine Use Comment: 1 cup per day Review of Systems - Review of Systems Review Of Systems: Comprehensive ROS is negative, except as noted in HPI. ED EXAM, GENERAL - Physical Exam Exam: See Below (see dictation) Course - Vital Signs Last Recorded V/S: Last Vital Signs Temp 98.5 F 12/15/19 09:41 Pulse 79 12/15/19 09:41 Resp 16 12/15/19 09:41 BP 137/83 12/15/19 09:41 Pulse Ox 98 12/15/19 09:41 Departure - Departure Time of Disposition: 11:08 Disposition: Home, Self-Care 01 Condition: Good Clinical Impression: Right anterior shoulder pain - Discharge Information Prescriptions: Diclofenac Sodium [Voltaren] 75 mg PO BIDMEALS #20 tab.cr Referrals: Shahana Ac DO [Primary Care Provider] - Forms: ED Department Discharge Additional Instructions: The following information is given to patients seen in the emergency department who are being discharged to home. This information is to outline your options for follow-up care. We provide all patients seen in our emergency department with a follow-up referral. The need for follow-up, as well as the timing and circumstances, are variable depending upon the specifics of your emergency department visit. If you don't have a primary care physician on staff, we will provide you with a referral. We always advise you to contact your personal physician following an emergency department visit to inform them of the circumstance of the visit and for follow-up with them and/or the need for any referrals to a consulting specialist. The emergency department will also refer you to a specialist when appropriate. This referral assures that you have the opportunity for follow-up care with a specialist. All of these measure are taken in an effort to provide you with optimal care, which includes your follow-up. Under all circumstances we always encourage you to contact your private physician who remains a resource for coordinating your care. When calling for follow-up care, please make the office aware that this follow-up is from your recent emergency room visit. If for any reason you are refused follow-up, please contact the [facility] Emergency Department at and asked to speak to the emergency department charge nurse. [facility] Specialty Care - Orthopedic Clinic Professional [address], [address] [place] [address] 1. Ice, elevate, and motrin or tylenol as needed 2. Follow up with orthopedics, please call the number provided to schedule an appointment 3. Return to ED as needed as discussed Sepsis Event Note - Evaluation Sepsis Screening Result: No Definite Risk - Focused Exam Vital Signs: Vital Signs Temp Pulse Resp BP Pulse Ox 12/15/19 09:41 98.5 F 79 16 137/83 98 Date Exam was Performed: 12/15/19 Time Exam was Performed: 11:08
--- NOTE | 2019-12-15 11:04 | CR ---
Right shoulder: 3 views of the right shoulder were obtained. Comparison: No previous right shoulder study. Glenohumeral joint appears within normal limits. Acromioclavicular joint shows no abnormal inferior spurring. No acute fracture or other bony abnormality is appreciated. No abnormal soft tissue calcifications are seen. Impression: 1. No abnormality is appreciated on right shoulder exam. Diagnostic code #1 This report was dictated in Mountain Standard Time
[2019-12-15 11:24] VITALS: BP 131/84; PULSE 75
== END 2019-12-15 11:26 | disposition home or self-care (01) ==
LOC: MW.ED 09:30
DX: M25.511 Pain in right shoulder (principal); E66.9 Obesity, unspecified; Z79.82 Long term (current) use of aspirin; F17.210 Nicotine dependence, cigarettes, uncomplicated
CPT/HCPCS: 73030-26-RT; 73030-RT; 99283; 99283-25

== ENCOUNTER 2020-09-19 07:10 | Emergency (ER) | payer BC ==
--- NOTE | 2020-09-19 07:22 | EDM.PDOC ---
ED HPI GENERAL MEDICAL PROBLEM - General Chief Complaint: Upper Extremity Injury/Pain Stated Complaint: LEFT ELBOW AND SHOULDER PAIN Time Seen by Provider: 09/19/20 07:20 Source of Information: Reports: Patient History Limitations: Reports: No Limitations - History of Present Illness INITIAL COMMENTS - FREE TEXT/NARRATIVE: 40-year-old male past medical history rheumatoid arthritis presents for atraumatic left elbow pain radiating up the arm. Feels typical of his rheumatoid arthritis flares. Notes that his flares are rather infrequent only occurring once or twice a year. Does not currently have a anesthesia tech. He is not on any steroids or immunomodulating medications. left elbow radiates up into L shoulder Pain Score (Numeric/FACES): 7 - Related Data Allergies Allergy/AdvReac Type Severity Reaction Status Date / Time No Known Allergies Allergy Verified 09/19/20 07:27 Home Meds: Home Meds Ibuprofen [Motrin] 600 mg PO Q6H PRN #28 tab 09/19/20 [Rx] oxyCODONE HCl/Acetaminophen [Percocet 5-325 mg Tablet] 1 each PO Q6H PRN #12 tablet 09/19/20 [Rx] predniSONE 40 mg PO DAILY 5 Days #10 tab 09/19/20 [Rx] Past Medical History - Past Health History Medical/Surgical History: Denies Medical/Surgical History HEENT History: Reports: Other (See Below) Other HEENT History: wears glasses, hx of Keratoconus left eye Cardiovascular History: Reports: Heart Murmur Respiratory History: Reports: None Gastrointestinal History: Reports: None Genitourinary History: Reports: None Musculoskeletal History: Reports: Other (See Below) Other Musculoskeletal History: 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) Neurological History: Reports: None Psychiatric History: Reports: None Endocrine/Metabolic History: Reports: Obesity/BMI 30+ Hematologic History: Reports: None Immunologic History: Reports: None Oncologic (Cancer) History: Reports: None Dermatologic History: Reports: None - Infectious Disease History Infectious Disease History: Reports: Chicken Pox - Past Surgical History Head Surgeries/Procedures: Reports: None Musculoskeletal Surgical History: Reports: Carpal Tunnel Other Musculoskeletal Surgeries/Procedures:: hx of bilateral CTR Social & Family History - Family History Family Medical History: Noncontributory - Caffeine Use Caffeine Use: Reports: None Caffeine Use Comment: 1 cup per day Review of Systems - Review of Systems Review Of Systems: Comprehensive ROS is negative, except as noted in HPI. 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, +TTP of L elbow without overt effusion/warmth/erythema) Neurological: Alert, Normal Gait Psychiatric: Normal Affect, Normal Mood Skin Exam: Warm, Dry, Intact, Normal Color Course - Vital Signs Last Recorded V/S: Last Vital Signs Temp 97.6 F 09/19/20 07:25 Pulse 66 09/19/20 07:25 Resp 16 09/19/20 07:25 BP 126/72 09/19/20 07:25 Pulse Ox 97 09/19/20 07:25 - Orders/Labs/Meds Meds: Medications Discontinued Medications Generic Name Dose Route Start Last Admin Trade Name Elo PRN Reason Stop Dose Admin Acetaminophen 1,000 mg 09/19/20 07:35 Tylenol Extra Strength PO 09/19/20 07:36 ONETIME ONE Ketorolac Tromethamine 30 mg 09/19/20 07:35 Toradol IM 09/19/20 07:36 STAT STA Prednisone 40 mg 09/19/20 07:35 Prednisone PO 09/19/20 07:36 ONETIME ONE - Re-Assessments/Exams Free Text/Narrative Re-Assessment/Exam: 09/19/20 07:38 Patient with history of rheumatoid arthritis presents for atraumatic pain of left elbow radiating upwards. Feels typical of his rheumatoid flares. No recent steroid use, no immunomodulator use. Will give Toradol, Tylenol for analgesia. Will give prednisone now and discharged with 5-day course of prednisone. Will d/c with short course analgesia. Will refer to rheumatology for further work-up. Departure - Departure Time of Disposition: 07:46 Disposition: Home, Self-Care 01 Condition: Good Clinical Impression: Rheumatoid arthritis Qualifiers: Rheumatoid arthritis location: elbow Rheumatoid factor presence: unspecified presence Laterality: left Qualified Code(s): M06.9 - Rheumatoid arthritis, unspecified - Discharge Information Prescriptions: Ibuprofen [Motrin] 600 mg PO Q6H PRN #28 tab PRN Reason: Pain oxyCODONE HCl/Acetaminophen [Percocet 5-325 mg Tablet] 1 each PO Q6H PRN #12 tablet PRN Reason: Pain predniSONE 40 mg PO DAILY 5 Days #10 tab Instructions: Arthritis Referrals: Shahana Ac DO [Primary Care Provider] - Forms: ED Department Discharge Additional Instructions: Given your history of rheumatoid arthritis, your symptoms are consistent with a rheumatoid flare. You were given an injectable pain medicine, as well as Tylenol. You were prescribed high-dose Motrin which you can take with Tylenol to help with your acute pain. You were also prescribed a 5-day course of prednisone which is a steroid that helps reduce inflammation and is particularly useful in rheumatoid arthritis. For further work-up, I do recommend following up with a anesthesia tech. Unfortunately we do not have any local anesthesia tech, but [facility] in [place], [place] does have rheumatology available. Contact information is provided below. Dr. Morelia Pacheco MD, rheumatology [address] [place] [id number] [address] Thank you for allowing me to participate in your medical care. If you have any new concerning symptom development, you are always welcome to come and be checked out in the Emergency Department. -Dr. Yann Hoffman ____ The following information is given to patients seen in the emergency department who are being discharged to home. This information is to outline your options for follow-up care. We provide all patients seen in our emergency department with a follow-up referral. The need for follow-up, as well as the timing and circumstances, are variable depending upon the specifics of your emergency department visit. If you don't have a primary care physician on staff, we will provide you with a referral. We always advise you to contact your personal physician following an emergency department visit to inform them of the circumstance of the visit and for follow-up with them and/or the need for any referrals to a consulting specialist. The emergency department will also refer you to a specialist when appropriate. This referral assures that you have the opportunity for follow-up care with a specialist. All of these measure are taken in an effort to provide you with optimal care, which includes your follow-up. Under all circumstances we always encourage you to contact your private physician who remains a resource for coordinating your care. When calling for follow-up care, please make the office aware that this follow-up is from your recent emergency room visit. If for any reason you are refused follow-up, please contact the [facility] Emergency Department at and asked to speak to the emergency department charge nurse. Please follow up with your primary care physician. If you do not have a primary care physician, see below: [facility] [address] [place] [id number] [facility] [address] [place] [id number] Sepsis Event Note (ED) - Focused Exam Vital Signs: Vital Signs Temp Pulse Resp BP Pulse Ox 09/19/20 07:25 97.6 F 66 16 126/72 97
[2020-09-19 07:29] VITALS: BP 126/72; PULSE 66
[2020-09-19] MEDS ORDERED: Acetaminophen 500 MG Tab PO ONE (07:35)
[2020-09-19] MEDS ORDERED: Ketorolac 30 MG/ML SDV IM STA (07:35)
[2020-09-19] MEDS ORDERED: predniSONE 20 MG Tab PO ONE (07:35)
== END 2020-09-19 08:00 | disposition home or self-care (01) ==
LOC: MW.ED 07:10
DX: M06.822 Other specified rheumatoid arthritis, left elbow (principal); E66.9 Obesity, unspecified; Z68.34 Body mass index [BMI] 34.0-34.9, adult
CPT/HCPCS: 96372; 99283; A9270; J1885

== ENCOUNTER 2021-06-07 17:12 | Emergency (ER) | payer BC ==
[2021-06-07] MEDS ORDERED: Ketorolac 60 MG/2 ML SDV IM ONE (17:55)
--- NOTE | 2021-06-07 18:28 | EDM.PDOC ---
ED HPI GENERAL MEDICAL PROBLEM - General Chief Complaint: Neck Problem Stated Complaint: STIFF NECK Time Seen by Provider: 06/07/21 17:20 Source of Information: Reports: Patient History Limitations: Reports: No Limitations - History of Present Illness INITIAL COMMENTS - FREE TEXT/NARRATIVE: HISTORY AND PHYSICAL: History of present illness: Patient is a 40-year-old male who presents to the ED today with concern of possible pulled muscle of his neck. Patient states every once in a while, he sleeps incorrectly and ends up with neck stiffness. Patient states that he went to the chiropractor several days ago and had improvement of his neck but states that today he was stretching back and felt like he pulled it again on the right. Patient states he also felt a popping sensation when he did this so came to the emergency room for further evaluation. Patient denies any other associated symptoms or any other pain or difficulty. Patient states that he was not seen by the chiropractor today but this was several days ago and was doing better until he had stretched today. Patient denies fever, chills, chest pain, shortness of breath, or cough. Denies headache,change in vision, syncope, or near syncope. Denies nausea, vomiting, abdominal pain, diarrhea, constipation, or dysuria. Has not noted any blood in urine or stool. Patient has been eating and drinking appropriately. Review of systems: As per history of present illness and below otherwise all systems reviewed and negative. Past medical history: As per history of present illness and as reviewed below otherwise noncontributory. Surgical history: As per history of present illness and as reviewed below otherwise noncontributory. Social history: See social history for further information Family history: As per history of present illness and as reviewed below otherwise noncontributory. Physical exam: General: Patient is alert, oriented, and in no acute distress. Patient sitting comfortably on exam table. Vitals stable and reviewed by me. Afebrile. HEENT: Atraumatic, normocephalic, pupils equal and reactive bilaterally, negative for conjunctival pallor or scleral icterus, mucous membranes moist, TMs normal bilaterally, throat clear, neck supple, nontender, trachea midline. No drooling or trismus noted. No meningeal signs. No hot potato voice noted. Lungs: Clear to auscultation, breath sounds equal bilaterally, chest nontender. Heart: S1S2, regular rate and rhythm without overt murmur Abdomen: Soft, nondistended, nontender. Negative for masses or hepatosplenomegaly. Negative for costovertebral tenderness. Pelvis: Stable nontender. Genitourinary: Deferred. Rectal: Deferred. Skin: Intact, warm, dry. No lesions or rashes noted. Extremities: Patient has limited range of motion of the cervical spine due to pain of the right trapezius muscle. Patient does have full range of motion of the thoracic and lumbar spine without pain or difficulty. No obvious deformity of the complete spine. No step-offs, crepitus, or point tenderness to palpation of the complete spine. Patient does have pain all along the right sided trapezius muscle and the right-sided trapezius muscle is more firm to palpation on the left side consistent with muscle spasm. Otherwise, atraumatic, negative for cords or calf pain. Neurovascular unremarkable. Neuro: Awake, alert, oriented. Cranial nerves II through XII unremarkable. Cerebellum unremarkable. Motor and sensory unremarkable throughout. Exam nonfocal. Notes: Signs and symptoms that were prompt return to the ED thoroughly discussed with patient. Discussed importance for follow-up with a primary care provider. Voices understanding and is agreeable to plan of care. Denies any further questions or concerns at this time. Diagnostics: Cervical spine x-ray Therapeutics: Toradol Prescription: Flexeril/diclofenac Impression: Muscle spasm of trapezius muscle, right Plan: 1. Rest, heat and gentle stretching of the affected area as discussed. 2. Tylenol as directed for pain management or discomfort. Take medication as prescribed. Do not take any additional NSAIDs with diclofenac such as ibuprofen, naproxen, Aleve, or aspirin. 3. Follow up with the primary care provider as discussed. Return to the ED as needed and as discussed. Definitive disposition and diagnosis as appropriate pending reevaluation and review of above. right sided neck pain Pain Score (Numeric/FACES): 8 - Related Data Allergies Allergy/AdvReac Type Severity Reaction Status Date / Time No Known Allergies Allergy Verified 06/07/21 17:22 Home Meds: Home Meds Ibuprofen [Motrin] 600 mg PO Q6H PRN #28 tab 09/19/20 [Rx] Cyclobenzaprine [Flexeril] 10 mg PO TID PRN #9 tab 06/07/21 [Rx] Diclofenac Sodium [Voltaren] 75 mg PO BIDMEALS PRN #15 tab.cr 06/07/21 [Rx] Past Medical History - Past Health History Medical/Surgical History: Denies Medical/Surgical History HEENT History: Reports: Other (See Below) Other HEENT History: wears glasses, hx of Keratoconus left eye Cardiovascular History: Reports: Heart Murmur Respiratory History: Reports: None Gastrointestinal History: Reports: None Genitourinary History: Reports: None Musculoskeletal History: Reports: Other (See Below) Other Musculoskeletal History: 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) Neurological History: Reports: None Psychiatric History: Reports: None Endocrine/Metabolic History: Reports: Obesity/BMI 30+ Hematologic History: Reports: None Immunologic History: Reports: None Oncologic (Cancer) History: Reports: None Dermatologic History: Reports: None - Infectious Disease History Infectious Disease History: Reports: Chicken Pox - Past Surgical History Head Surgeries/Procedures: Reports: None HEENT Surgical History: Reports: None Cardiovascular Surgical History: Reports: None Respiratory Surgical History: Reports: None GI Surgical History: Reports: None Male Surgical History: Reports: None Endocrine Surgical History: Reports: None Neurological Surgical History: Reports: None Musculoskeletal Surgical History: Reports: Carpal Tunnel Other Musculoskeletal Surgeries/Procedures:: hx of bilateral CTR Oncologic Surgical History: Reports: None Dermatological Surgical History: Reports: Other (See Below) Social & Family History - Family History Family Medical History: No Pertinent Family History - Tobacco Use Tobacco Use Status *Q: Former Tobacco User Used Tobacco, but Quit: Yes Month/Year Tobacco Last Used: 2019 - Caffeine Use Caffeine Use: Reports: Coffee Caffeine Use Comment: 1 cup per day - Recreational Drug Use Recreational Drug Use: No ED ROS GENERAL - Review of Systems Review Of Systems: Comprehensive ROS is negative, except as noted in HPI. ED EXAM, GENERAL - Physical Exam Exam: See Below (see dictation) Course - Vital Signs Last Recorded V/S: Last Vital Signs Temp 97.1 F 06/07/21 17:22 Pulse 68 06/07/21 17:22 Resp 15 06/07/21 17:22 BP 129/76 06/07/21 17:22 Pulse Ox 97 06/07/21 17:22 - Orders/Labs/Meds Meds: Medications Discontinued Medications Generic Name Dose Route Start Last Admin Trade Name Freq PRN Reason Stop Dose Admin Ketorolac Tromethamine 60 mg 06/07/21 17:55 06/07/21 18:13 Ketorolac 60 Mg/2 Ml Sdv IM 06/07/21 17:56 60 mg ONETIME ONE Administration Departure - Departure Time of Disposition: 18:47 Disposition: Home, Self-Care 01 Clinical Impression: Trapezius muscle spasm - Discharge Information Prescriptions: Cyclobenzaprine [Flexeril] 10 mg PO TID PRN #9 tab PRN Reason: Spasms Diclofenac Sodium [Voltaren] 75 mg PO BIDMEALS PRN #15 tab.cr PRN Reason: Pain Referrals: Shahana Ac DO [Primary Care Provider] - Forms: ED Department Discharge Additional Instructions: The following information is given to patients seen in the emergency department who are being discharged to home. This information is to outline your options for follow-up care. We provide all patients seen in our emergency department with a follow-up referral. The need for follow-up, as well as the timing and circumstances, are variable depending upon the specifics of your emergency department visit. If you don't have a primary care physician on staff, we will provide you with a referral. We always advise you to contact your personal physician following an emergency department visit to inform them of the circumstance of the visit and for follow-up with them and/or the need for any referrals to a consulting specialist. The emergency department will also refer you to a specialist when appropriate. This referral assures that you have the opportunity for follow-up care with a specialist. All of these measure are taken in an effort to provide you with optimal care, which includes your follow-up. Under all circumstances we always encourage you to contact your private physician who remains a resource for coordinating your care. When calling for follow-up care, please make the office aware that this follow-up is from your recent emergency room visit. If for any reason you are refused follow-up, please contact the [facility] Emergency Department at and asked to speak to the emergency department charge nurse. [facility] [address] [place] [address] [id number] [address] [address] 1. Rest, heat and gentle stretching of the affected area as discussed. 2. Tylenol as directed for pain management or discomfort. Take medication as prescribed. Do not take any additional NSAIDs with diclofenac such as ibuprofen, naproxen, Aleve, or aspirin. 3. Follow up with the primary care provider as discussed. Return to the ED as needed and as discussed. Sepsis Event Note (ED) - Evaluation Sepsis Screening Result: No Definite Risk - Focused Exam Vital Signs: Vital Signs Temp Pulse Resp BP Pulse Ox 06/07/21 17:22 97.1 F 68 15 129/76 97
--- NOTE | 2021-06-07 18:33 | CR ---
For Patients: As a result of the Cures Act, medical imaging exams and procedure reports are released immediately into your electronic medical record. You may view this report before your referring provider. If you have questions, please contact your health care provider. INDICATION: Cervical spine pain TECHNIQUE: Cervical spine radiograph 4 views COMPARISON: None FINDINGS: Bone: No acute fractures or aggressive bone lesions are identified. Straightening of the cervical spine noted. Disc: The disc spaces are unremarkable in appearance. The facet joints are unremarkable. Soft tissue: Unremarkable. No radiopaque foreign bodies are seen. IMPRESSION: 1. No acute osseous injuries or abnormalities are noted. Dictated by: Jean-Paul Garcia MD @ 06/07/2021 18:31:39 (Electronically Signed)
[2021-06-07 18:54] VITALS: BP 124/73; PULSE 65
== END 2021-06-07 18:55 | disposition home or self-care (01) ==
LOC: MW.ED 17:12
DX: M62.838 Other muscle spasm (principal); E66.9 Obesity, unspecified; Z68.37 Body mass index [BMI] 37.0-37.9, adult; Z87.891 Personal history of nicotine dependence
CPT/HCPCS: 72040; 96372; 99283; J1885

== ENCOUNTER 2021-07-14 07:10 | Emergency (ER) | payer BC ==
--- NOTE | 2021-07-14 07:38 | EDM.PDOC ---
ED HPI GENERAL MEDICAL PROBLEM - General Chief Complaint: ENT Problem Stated Complaint: POSSIBLE EAR INFECTION Time Seen by Provider: 07/14/21 07:12 Source of Information: Reports: Patient History Limitations: Reports: No Limitations - History of Present Illness INITIAL COMMENTS - FREE TEXT/NARRATIVE: Patient is a 40-year-old male who presents today for left ear pain. Patient was told that he had an ear infection a possible ruptured eardrum over a month ago and has not yet follow-up with anyone. Patient states that the pain is returned. Denies any fever chills difficulty eating or drinking. Patient has not put anything in the ear while swimming or any other injuries to the ear. Denies any other symptoms. Ear Pain Score (Numeric/FACES): 7 - Related Data Allergies Allergy/AdvReac Type Severity Reaction Status Date / Time No Known Allergies Allergy Verified 07/14/21 07:32 Home Meds: Home Meds Hydrocort/Neomycin/Polymyxin B [Ivgqdalv-Dpsccgkif-GJ Otic Susp] 4 drop .XX TID 7 Days #10 ml 07/14/21 [Rx] Past Medical History - Past Health History Medical/Surgical History: Denies Medical/Surgical History HEENT History: Reports: Other (See Below) Other HEENT History: wears glasses, hx of Keratoconus left eye Cardiovascular History: Reports: Heart Murmur Respiratory History: Reports: None Gastrointestinal History: Reports: None Genitourinary History: Reports: None Musculoskeletal History: Reports: Other (See Below) Other Musculoskeletal History: 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) Neurological History: Reports: None Psychiatric History: Reports: None Endocrine/Metabolic History: Reports: Obesity/BMI 30+ Hematologic History: Reports: None Immunologic History: Reports: None Oncologic (Cancer) History: Reports: None Dermatologic History: Reports: None - Infectious Disease History Infectious Disease History: Reports: Chicken Pox - Past Surgical History Head Surgeries/Procedures: Reports: None HEENT Surgical History: Reports: None Cardiovascular Surgical History: Reports: None Respiratory Surgical History: Reports: None GI Surgical History: Reports: None Male Surgical History: Reports: None Endocrine Surgical History: Reports: None Neurological Surgical History: Reports: None Musculoskeletal Surgical History: Reports: Carpal Tunnel Other Musculoskeletal Surgeries/Procedures:: hx of bilateral CTR Oncologic Surgical History: Reports: None Dermatological Surgical History: Reports: Other (See Below) Social & Family History - Family History Family Medical History: No Pertinent Family History - Caffeine Use Caffeine Use: Reports: Coffee Caffeine Use Comment: 1 cup per day ED ROS ENT - Review of Systems Review Of Systems: See Below Constitutional: Reports: No Symptoms HEENT: Reports: Ear Pain Respiratory: Reports: No Symptoms Endocrine: Reports: No Symptoms GI/Abdominal: Reports: No Symptoms : Reports: No Symptoms Musculoskeletal: Reports: No Symptoms Skin: Reports: No Symptoms Neurological: Reports: No Symptoms Psychiatric: Reports: No Symptoms Hematologic/Lymphatic: Reports: No Symptoms Immunologic: Reports: No Symptoms ED EXAM, ENT - Physical Exam Exam: See Below Exam Limited By: No Limitations General Appearance: Alert, WD/WN, No Apparent Distress Eye Exam: Bilateral Eye: EOMI, PERRL Ears: Normal External Exam. No: Normal Canal, Normal TMs, Hearing Loss, Auricular Erythema Head: Atraumatic Respiratory/Chest: No Respiratory Distress Neurological: Alert, Oriented Course - Vital Signs Last Recorded V/S: Last Vital Signs Temp 97.5 F 07/14/21 07:48 Pulse 78 07/14/21 07:48 Resp 20 07/14/21 07:48 BP 127/87 07/14/21 07:48 Pulse Ox 98 07/14/21 07:48 Departure - Departure Time of Disposition: 07:34 Disposition: Home, Self-Care 01 Condition: Good Clinical Impression: Otitis externa - Discharge Information *PRESCRIPTION DRUG MONITORING PROGRAM REVIEWED*: Not Applicable *COPY OF PRESCRIPTION DRUG MONITORING REPORT IN PATIENT KEREN: Not Applicable Prescriptions: Hydrocort/Neomycin/Polymyxin B [Klfnllsw-Rhmmghdts-MQ Otic Susp] 4 drop .XX TID 7 Days #10 ml Instructions: Otitis Externa, [id number] Referrals: Shahana Ac DO [Primary Care Provider] - Forms: ED Department Discharge Additional Instructions: The following information is given to patients seen in the emergency department who are being discharged to home. This information is to outline your options for follow-up care. We provide all patients seen in our emergency department with a follow-up referral. The need for follow-up, as well as the timing and circumstances, are variable depending upon the specifics of your emergency department visit. If you don't have a primary care physician on staff, we will provide you with a referral. We always advise you to contact your personal physician following an emergency department visit to inform them of the circumstance of the visit and for follow-up with them and/or the need for any referrals to a consulting specialist. The emergency department will also refer you to a specialist when appropriate. This referral assures that you have the opportunity for follow-up care with a specialist. All of these measure are taken in an effort to provide you with optimal care, which includes your follow-up. Under all circumstances we always encourage you to contact your private physician who remains a resource for coordinating your care. When calling for follow-up care, please make the office aware that this follow-up is from your recent emergency room visit. If for any reason you are refused follow-up, please contact the [facility] Emergency Department at and asked to speak to the emergency department charge nurse. Please follow up with your primary care physician. If you do not have a primary care physician, see below: Vernon Santamaria MD [facility]-Vv[facility]-Throat/Head & Neck Surgery [facility], [address] [place] [address] [address] [place] [address] P: [phone] F: [phone] You were seen today for pain to your left ear. You were told that you had a ruptured eardrum drawn by a previous provider however you failed to follow-up with ENT. Above is the number to an ear nose and throat doctor that if continue to have problems she should follow-up and see. If you have any other concerning signs or symptoms you can return to the ED otherwise we recommend you follow-up with your primary care physician. We have sent antibiotics eardrops to be used for 7 days to help treat the infection. Sepsis Event Note (ED) - Focused Exam Vital Signs: Vital Signs Temp Pulse Resp BP Pulse Ox 07/14/21 07:48 97.5 F 78 20 127/87 98 07/14/21 07:28 97 F 60 20 147/79 H 95 - Assessment/Plan Plan: Patient is a 40-year-old male presents today for possible ear infection. Patient was told he had a ruptured eardrum but never followed up with ENT. He has pain to the left ear now. Try patient eardrops and again refer patient to the ENT physician.
[2021-07-14 07:50] VITALS: BP 127/87; PULSE 78
== END 2021-07-14 07:49 | disposition home or self-care (01) ==
LOC: MW.ED 07:10
DX: H60.92 Unspecified otitis externa, left ear (principal); E66.9 Obesity, unspecified; Z68.37 Body mass index [BMI] 37.0-37.9, adult
CPT/HCPCS: 99282